=== PATIENT | male | born 1960 | race Caucasian/White ===

== ENCOUNTER → 2016-12-27 | Outpatient (CLI) | payer OTHER ==
[2015-03-10 12:35] VITALS: BP 181/96
--- NOTE | 2016-12-27 08:48 | RAD ---
HISTORY: Disability, low back pain Study: Three views lumbar spine Comparison: 06/24/2013 Findings: There is grade 1 anterolisthesis of L5 on S1 due to multilevel facet degenerative changes. Alignment is otherwise normal. Vertebral body heights are preserved. There is multilevel spondylosis and de generative disc space narrowing unchanged from prior study.No evidence for acute fracture or subluxa tion. There are chronic degenerative changes of the bony pelvis. There are vascular calcifications o f the aorta and iliac arteries. IMPRESSION: 1. Chronic multilevel lumbar degenerative changes as described. There is grade 1 anterolisthesis of L5 on S1. No acute osseous abnormality. Reported By:
== END ==
LOC: RAD 07:55
PROVIDERS: ATTEND Internal Medicine
DX: Z02.71 Encounter for disability determination (principal)
CPT/HCPCS: 72100

== ENCOUNTER 2017-04-19 09:19 | Emergency (ER) | payer MEDICAID, OTHER ==
[2017-04-19 09:23] VITALS: BMI 36.1
[2017-04-19] MEDS ORDERED: CATAPRES TAB 0.2 MG ONE (09:34)
[2017-04-19] MEDS ORDERED: CATAPRES TAB 0.2 MG PO ONE (09:36)
[2017-04-19] MEDS ORDERED: TORADOL 60 MG VIAL IM ONE (10:00)
[2017-04-19] MEDS ORDERED: NORFLEX INJ IM ONE (10:00)
--- NOTE | 2017-04-19 10:01 | DR.EXTPAIN ---
HPI - Time seen Time seen: 09:55 - PCP Primary Care Physician: NFD - Complaint/Symptoms Chief Complaint Doctor Comments: R Knee pain. No h/o trauma. Chief Complaint:: PT. C/O SEVERE PAIN TO RIGHT KNEE WHICH IS CHRONIC IN NATURE AND HAS BEEN GOING ON FOR ABOUT 6 MONTHS. PT. STATES HE SEEN DR. DAMON LAST MONTH AND HAD INJECTIONS INTO KNEE BUT IT DID NOT HELP. PT. ALSO SAYS THAT HIS BLOOD PRESSURE IS SHERIF HIGH AND HE CAN'T GET IT DOWN. - Nurses notes reviewed Nurses Notes Review: Yes - Source History Provided: Patient - Mode of arrival Mode of Arrival: Ambulatory - Timing Onset of Chief Complaint: 11/08/16 - Context History of: Knee Operation - Associated signs and symptoms Associated Signs and Symptoms: Pain, Swelling PMH - PMH Past Medical History: Yes Past Medical History: Hypertension Past Surgical History: Yes Surgical History: Ortho Surgery, Other Past Surgical History Comment: NECK - Family History History of Family Medical Conditions: No Family Medical History: Diabetes Mellitus, Coronary Artery Disease, Hypertension - Social History Does patient currently use any type of tobacco product: Yes Have you used tobacco products in the last 12 months: Yes Type of Tobacco Use: Cigarettes Does any household member use tobacco: No Alcohol Use: None Do you use any recreational Drugs:: No Lives With: Dad, Mom Lives Where: Home - infectious screening In the last 2 months have you had wt loss of >10#?: NO Have you had fever, night sweats or hemotysis?: No Have you traveled outside the country in the last 6 months?: No Isolation: Standard ROS - Review of Systems Constitutional: No Symptoms Reported Respiratoy: No Symptoms Reported Cardiovascular: No Symptoms Reported Gastrointestinal/Abdominal: No Symptoms Reported Genitourinary: No Symptoms Reported Neurological: No Symptoms Reported Musculoskeletal: Joint Pain, Joint Swelling, Right, Knee Integumentary: No Symptoms Reported Hematologic/Lymphatic: No Symptoms Reported Endocrine: No Symptoms Reported Psychiatric: No Symptoms Reported All Other Systems: Reviewed and Negative PE - Vital Signs Vitals: Temperature 98 F Pulse Rate 80 Respiratory Rate 22 Blood Pressure [Right Arm] 180/100 Blood Pressure 200/110 O2 Sat by Pulse Oximetry 96 - General Limitations: No Limitations General Appearance: In No Apparent Distress - Chest Chest Inspection: Normal Inspection - Respiratory Respiratory Exam: Normal Lung Sounds Bilat - Cardiovascular Cardiovascular Exam: Regular Rate, Normal Rhythm, Normal Heart Sounds - Extremities Extremities Exam: Other (R knee swelling and decrease ROM due to pain and swellling) - Upper Extremities Shoulder Exam: Normal Inspection Arm Exam: Normal Inspection Neuromotor Exam: Normal Exam Neurosensory Exam: Normal Exam - Lower Extremities Knee Exam: Tenderness, Swelling, Crepitus, Effusion. negative: Deformity, Erythema, Pain with Valgus, Laxity with Valgus Ankle Exam: Normal Inspection Foot/Toe Exam: Normal Inspection - Diagnosis Discharge Problem: degenerative disc disease - Discharge Plan Condition: Stable - Follow ups/Referrals Follow ups/Referrals: NFD,None [Primary Care Provider] - 3 days - Instructions
[2017-04-19] MEDS ORDERED: NORFLEX INJ ONE (10:02)
[2017-04-19] MEDS ORDERED: TORADOL 60 MG VIAL ONE (10:02)
[2017-04-19] MEDS ORDERED: NAPROSYN PO PRN (10:12)
--- NOTE | 2017-04-19 10:29 | RAD ---
HISTORY: Nontraumatic right knee pain Study: Right knee three view Comparison: None Findings: There is no evidence for fracture, lytic, or blastic lesion. No joint erosion or joint effusion is p resent. Moderate degenerative joint space narrowing is present medially. IMPRESSION: Mild degenerative medial compartment narrowing Reported By:
[2017-04-19 10:34] VITALS: BP 139/85
== END 2017-04-19 10:48 | disposition home or self-care (01) ==
LOC: ER 09:28
DX: M51.36 Other intervertebral disc degeneration, lumbar region (principal)
CPT/HCPCS: 73560; 96372; 99283; J1885; J2360

== ENCOUNTER 2017-08-22 22:15 | Emergency (ER) | payer MEDICAID ==
[2017-08-22 22:19] VITALS: BMI 38.4
[2017-08-22 22:50] LABS: BASOPHILS % (AUTO) 0.3 % (0.2-1.0); EOSINOPHILS # (AUTO) 0.3 x10^3/uL (0.0-0.2); EOSINOPHILS % (AUTO) 4.2 % (0.9-2.9); HEMATOCRIT 42.3 % (42.0-54.0); HEMOGLOBIN 14.6 g/dL (13.5-18.0); LYMPHOCYTES % (AUTO) 30.2 % (21.0-51.0); MEAN CORPUSCULAR HEMOGLOBIN 31.4 pg (27.0-34.0); MEAN CORPUSCULAR HGB CONC 34.5 g/dL (33.0-35.0); MEAN CORPUSCULAR VOLUME 91.1 fL (80.0-100.0); MEAN PLATELET VOLUME 8.3 fL (7.4-11.0); MONOCYTES # (AUTO) 0.7 x10^3/uL (0.3-0.8); MONOCYTES % (AUTO) 10.2 % (0.0-13.0); NEUTROPHILS # (AUTO) 3.6 x10^3/uL (2.2-4.8); NEUTROPHILS % (AUTO) 55.1 % (42.0-75.0); PLATELET COUNT 209 X10^3/uL (150.0-450.0); RED BLOOD COUNT 4.64 X10^6/uL (4.7-6.0); RED CELL DISTRIBUTION WIDTH 13.6 % (11.6-16.5); WHITE BLOOD COUNT 6.5 X10^3/uL (3.6-10.0)
[2017-08-22 23:07] LABS: BLOOD UREA NITROGEN 16 mg/dL (7-18); CALCIUM 9.5 mg/dL (8.5-10.1); CARBON DIOXIDE 24.8 mmol/L (21-32); CHLORIDE 107 mmol/L (98-107); COR NA(FOR HYPERGLY) 143 mmol/L (136-145); CREATININE 1.37 mg/dL (0.70-1.30); SODIUM 142 mmol/L (136-145); TROPONIN I < 0.02 ng/mL (0-1.5); eGFR BLACK RACES > 60 (>60); eGFR NON BLACK RACES 57 (>60)
[2017-08-22 23:09] LABS: ALANINE AMINOTRANSFERASE 35 Units/L (12-78); ALBUMIN 3.7 g/dL (3.4-5.0); ALKALINE PHOSPHATASE 67 Units/L (46-116); ASPARTATE AMINO TRANSFERASE 28 Units/L (15-37); CREATINE KINASE 96 Units/L (39-308); CREATINE KINASE MB < 1.0 ng/mL (0-4.0); TOTAL PROTEIN 7.1 g/dL (6.4-8.2)
[2017-08-22] MEDS ORDERED: VISTARIL PO ONE ×2 (23:09→23:15)
[2017-08-22] MEDS ORDERED: PEPCID 20 MG IV PREMIX* 20 MG/50 ML BAG IV ONE (23:10)
[2017-08-22] MEDS ORDERED: TORADOL 30 MG VIAL IVP ONE (23:10)
--- NOTE | 2017-08-22 23:13 | DR.GENAD ---
HPI - HPI Comment HPI Comment: KNEE PAIN CHRONIC BUT WORSE TODAY. NO TRAUMA. CHEST PAIN ASSOCIATED WITH SOB ABD CHEST WALL DISCOMFORT. NO TRAUMA. - Complaint/Symptoms Chief Complaint Doctors Comments: CHEST PAIN, KNEE PAIN TIMES 3 TO 4 DAYS. Chief Complaint:: PT C/O RT KNEE PAIN AND CHEST PAIN. ONSET 4 DAYS AGO. DENIES INJURY. STATES THAT HIS KNEE HAS BEEN HURTING FOR OVER A YEAR AND NO ONE CAN FIND ANYTHIGN WRONG WITH IT. CHEST PAIN HURTS WORSE TO TAKE A DEEP BREATH AND TENDER TO PALPATION - Nurses notes reviewed Nurses Notes Review: Yes - Source History Provided: Patient - Mode of Arrival Mode of Arrival: Ambulatory - Timing Onset of Chief Complaint: 08/19/17 Came on: Suddenly - Duration Duration: Constant Duration: Days - Severity Severity: Moderate PMH - PMH Past Medical History: Yes Past Medical History: Anxiety, COPD, Hypertension Past Surgical History: Yes Surgical History: Ortho Surgery, Other - Family History History of Family Medical Conditions: Yes Family Medical History: Diabetes Mellitus, Coronary Artery Disease, Hypertension - Social History Do you use any recreational Drugs:: No - infectious screening Have you traveled outside the country in the last 6 months?: No ROS - Review of Systems Constitutional: Weakness. negative: Chills, Fever Eyes: negative: Eye Pain, Discharge ENTM: Nose Congestion. negative: Ear Discharge, Nose Discharge, Mouth Pain Respiratoy: Non-Productive Cough, Short of Breath, Wheezing Cardiovascular: Chest Pain, Edema Gastrointestinal/Abdominal: No Symptoms Reported Genitourinary: No Symptoms Reported Musculoskeletal: Joint Pain, Joint Swelling, Muscle Pain, Knee Integumentary: Change in Color Hematologic/Lymphatic: Easy Bleeding, Easy Bruising Endocrine: No Symptoms Reported All Other Systems: Reviewed and Negative PE - Vital Signs Vitals: Temperature 98.7 F Pulse Rate [Left Radial] 72 Pulse Rate 97 Respiratory Rate 18 Blood Pressure [Right Arm] 144/86 Blood Pressure 144/87 O2 Sat by Pulse Oximetry 98 - General Limitations: No Limitations General Appearance: Alert - Head Head Exam: Normal Inspection - Eyes Eye exam: Normal Appearance - ENT ENT Exam: Normal External Ear Exam External Ear Exam: Normal External Inspection TM/Canal Exam: Bilateral Normal Nose Exam: Normal Nose Exam Mouth Exam: Normal Inspection Throat Exam: Normal Inspection - Neck Neck Exam: Trachea Midline - Chest Chest Inspection: Symmetric Chest Wall Rise - Respiratory Respiratory Exam: Respiratory Distress Respiratory Exam: Bilateral Wheezing, Bilateral Rhonchi, Lower Wheezing, Lower Rhonchi - Cardiovascular Cardiovascular Exam: Regular Rate, Normal Rhythm, Normal Heart Sounds - Abdominal Exam Abdominal Exam: Normal Bowel Sounds, Soft. negative: Tenderness - Extremities Extremities Exam: Edema (TRACE) - Back Back Exam: Normal Inspection - Neurologic Neurological Exam: Alert, Oriented X3 - Psychiatric Psychiatric Exam: Anxious - Skin Skin Exam: Erythema MDM - Differential Diagnosis Differential Diagnosis: CHEST PAIN, CT, CHEST WALL PAIN, KNEE PAIN Course - Treatment Treatment: SEE ORDERS. PATIENT SIGN OUT AMA BEFOR EVALUATION COMPLETED. - Education/Counseling Education/Counseling: Patient ROR - Labs Reviewed Laboratory Results Reviewed?: Yes Result Diagrams: 08/22/17 22:30 08/22/17 22:30 Laboratory: WBC 6.5 X10^3/uL (3.6-10.0) 08/22/17: RBC 4.64 X10^6/uL (4.7-6.0) L 08/22/17 22: Hgb 14.6 g/dL (13.5-18.0) 08/22/17 22:30 Hct 42.3 % (42.0-54.0) 08/22/17 22:30 MCV 91.1 fL (80.0-100.0) 08/22/17 22: MCH 31.4 pg (27.0-34.0) 08/22/17 22:30 MCHC 34.5 g/dL (33.0-35.0) 08/22/17 22:30 RDW 13.6 % (11.6-16.5) 08/22/17: Plt Count 209 X10^3/uL (150.0-450.0) 08/22/17 22:30 MPV 8.3 fL (7.4-11.0) 08/22/17 22: Neut % 55.1 % (42.0-75.0) 08/22/17: Lymph % 30.2 % (21.0-51.0) 08/22/17 22:30 [place] % 10.2 % (0.0-13.0) 08/22/17 22: Eos % 4.2 % (0.9-2.9) H 08/22/17 22: Baso % 0.3 % (0.2-1.0) 08/22/17 22:30 Neut # 3.6 x10^3/uL (2.2-4.8) 08/22/17 22:30 Lymph # 2.0 X10^3/uL (1.3-2.9) 08/22/17 22:30 [place] # 0.7 x10^3/uL (0.3-0.8) 08/22/17 22:30 Eos # 0.3 x10^3/uL (0.0-0.2) H 08/22/17 22:30 Baso # 0.0 X10^3/uL (0.0-0.1) 08/22/17:30 Absolute Nucleated RBC 0.1 /100WBC 08/22/17 22:30 Sodium 142 mmol/L (136-145) 08/22/17 22:30 Corrected Sodium 143 mmol/L (136-145) 08/22/17 22:30 Potassium 3.6 mmol/L (3.5-5.1) 08/22/17 22:30 Chloride 107 mmol/L (98-107) 08/22/17 22:30 Carbon Dioxide 24.8 mmol/L (21-32) 08/22/17 22:30 BUN 16 mg/dL (7-18) 08/22/17 22:30 Creatinine 1.37 mg/dL (0.70-1.30) H 08/22/17 22:30 Est GFR (MDRD) Af Amer > 60 (>60) 08/22/17 22:30 Est GFR (MDRD) Non-Af 57 (>60) L 08/22/17 22:30 Glucose 131 mg/dL (65-99) H 08/22/17 22:30 Calcium 9.5 mg/dL (8.5-10.1) 08/22/17 22:30 Corrected Calcium TNP 08/22/17:30 Total Bilirubin 0.30 mg/dL (0.2-1.0) 08/22/17 22:30 AST 28 Units/L (15-37) 08/22/17 22:30 ALT 35 Units/L (12-78) 08/22/17 22:30 Alkaline Phosphatase 67 Units/L (46-116) 08/22/17 22:30 Creatine Kinase 96 Units/L (39-308) 08/22/17 22:30 CK-MB (CK-2) < 1.0 ng/mL (0-4.0) 08/22/17 22:30 CK/CKMB % Calc 1.0 % (<4) 08/22/17 22:30 Troponin I < 0.02 ng/mL (0-1.5) 08/22/17 22:30 Total Protein 7.1 g/dL (6.4-8.2) 08/22/17 22:30 Albumin 3.7 g/dL (3.4-5.0) 08/22/17 22:30 Globulin 3.4 g/dL (2.5-4.5) 08/22/17 22:30 Albumin/Globulin Ratio 1.1 Ratio (1.1-2.1) 08/22/17 22:30 - EKG Rhythm: NSR (EKG NOTED) - Diagnosis Discharge Problem: Chest pain, Right knee pain - Discharge Plan Disposition: AGAINST MEDICAL ADVICE Condition: Stable - Follow ups/Referrals Follow ups/Referrals: NFD,None [Primary Care Provider] - 3 days - Instructions
[2017-08-22] MEDS ORDERED: PEPCID 20 MG IV PREMIX* 0 MG/0 ML BAG IV ONE (23:15)
[2017-08-22] MEDS ORDERED: TORADOL 30 MG VIAL ONE (23:15)
--- NOTE | 2017-08-22 23:15 | RAD ---
Chest, one view Indication: Chest pain Comparison: None Findings: The heart size is normal. The lungs are essentially clear without focal infiltrates or larg e effusion. Impression: No acute chest process. Reported By:
[2017-08-22 23:24] VITALS: BP 144/86
== END 2017-08-22 23:25 | disposition left against medical advice (07) ==
LOC: ER 22:32
DX: R07.89 Other chest pain (principal); M25.561 Pain in right knee
CPT/HCPCS: 36415; 71010; 80053; 82550; 82553; 84484; 85025; 93005; 93010; 96365; 99283; A4222; Q0177; S0028; J1885

== ENCOUNTER → 2017-09-06 | Outpatient (CLI) | payer MEDICAID ==
[2017-08-22 23:24] VITALS: BP 144/86
--- NOTE | 2017-09-06 06:26 | RAD ---
Examination: Right knee, three views History: Knee pain Comparison reference 04/19/2017 Findings: Slight narrowing of medial compartment, without evidence for fracture, bone destruction or synovial effusion. Impression: Stable appearance of mild medial compartment osteoarthritis. Reported By:
== END ==
LOC: RAD 05:18
PROVIDERS: ATTEND Specialist
DX: M46.89 Other specified inflammatory spondylopathies, multiple sites in spine (principal)
CPT/HCPCS: 73560

== ENCOUNTER → 2017-09-28 | Outpatient (CLI) | payer MEDICAID ==
--- NOTE | 2017-10-02 16:27 | MRI ---
MRI right knee without contrast Indication: Right knee pain Technique: Multisequence, multiplanar MR images of the right knee were obtained without IV contrast. Comparison: Radiograph 09/06/2017 Findings: There are large areas of full-thickness cartilage loss throughout the weight-bearing medial compartme nt with extensive subchondral marrow edema and cyst formation within the medial femoral condyle and t ibial plateau. No definite fracture is identified. There is also mild diffuse cartilage thinning of t he lateral femorotibial and patellofemoral compartments, which otherwise appear relatively well maint ained. There is a small suprapatellar joint effusion. No popliteal fossa cyst is identified. There are horizontal cleavage tears of the anterior and posterior horns of the medial meniscus. There is a complex degenerative tear and extrusion of the medial meniscal body. The lateral meniscus demon strates increased intrasubstance signal which does not extend to an articular surface, compatible wit h myxoid degeneration. The ACL and PCL are intact. There is mild likely reactive thickening and inter mediate signal of the intact superficial MCL. The FCL and remaining posterior lateral ligamentous com plex is intact. The extensor mechanism is normal as well. Impression: 1. 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 2. Diffuse associated degenerative tears of the medial meniscus, as detailed above. 3. 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 4. Small likely reactive joint effusion. Reported By:
== END ==
LOC: RAD 10:19
PROVIDERS: ATTEND Specialist
DX: M17.11 Unilateral primary osteoarthritis, right knee (principal)
CPT/HCPCS: 73721

== ENCOUNTER → 2017-10-18 | Outpatient (CLI) | payer MEDICAID ==
[2017-09-24 12:47] VITALS: BP 130/79
[2017-10-18 06:11] LABS: BASOPHILS % (AUTO) 0.3 % (0.2-1.0); EOSINOPHILS # (AUTO) 0.3 x10^3/uL (0.0-0.2); EOSINOPHILS % (AUTO) 4.7 % (0.9-2.9); HEMATOCRIT 44.3 % (42.0-54.0); HEMOGLOBIN 15.2 g/dL (13.5-18.0); LYMPHOCYTES # (AUTO) 2.1 X10^3/uL (1.3-2.9); LYMPHOCYTES % (AUTO) 29.4 % (21.0-51.0); MEAN CORPUSCULAR HEMOGLOBIN 31.4 pg (27.0-34.0); MEAN CORPUSCULAR HGB CONC 34.3 g/dL (33.0-35.0); MEAN CORPUSCULAR VOLUME 91.8 fL (80.0-100.0); MEAN PLATELET VOLUME 7.5 fL (7.4-11.0); MONOCYTES # (AUTO) 0.6 x10^3/uL (0.3-0.8); MONOCYTES % (AUTO) 8.5 % (0.0-13.0); NEUTROPHILS # (AUTO) 4.1 x10^3/uL (2.2-4.8); NEUTROPHILS % (AUTO) 57.1 % (42.0-75.0); PLATELET COUNT 292 X10^3/uL (150.0-450.0); RED BLOOD COUNT 4.82 X10^6/uL (4.7-6.0); RED CELL DISTRIBUTION WIDTH 13.9 % (11.6-16.5); WHITE BLOOD COUNT 7.2 X10^3/uL (3.6-10.0)
[2017-10-18 06:39] LABS: ALANINE AMINOTRANSFERASE 48 Units/L (12-78); ALBUMIN 3.4 g/dL (3.4-5.0); ALKALINE PHOSPHATASE 82 Units/L (46-116); ASPARTATE AMINO TRANSFERASE 29 Units/L (15-37); BLOOD UREA NITROGEN 21 mg/dL (7-18); CALCIUM 9.5 mg/dL (8.5-10.1); CARBON DIOXIDE 23.5 mmol/L (21-32); CHLORIDE 105 mmol/L (98-107); CREATININE 1.51 mg/dL (0.70-1.30); SODIUM 139 mmol/L (136-145); T4 (THYROXINE) 9.1 ug/dL (4.7-13.3); TOTAL PROTEIN 7.7 g/dL (6.4-8.2); TSH (3RD GENERATION) 2.762 uIU/mL (0.358-3.74); eGFR BLACK RACES > 60 (>60); eGFR NON BLACK RACES 51 (>60)
--- NOTE | 2017-10-18 06:59 | RAD ---
Examination: Chest, PA and lateral views History: No chest complaint Comparison 08/22/2017 Findings: Normal cardiac size, clear lungs and pleural spaces. There is no mediastinal or hilar lesio n. Impression: Chest examination within normal limits. Reported By:
== END ==
LOC: LAB 05:46
PROVIDERS: ATTEND Internal Medicine
DX: I10 Essential (primary) hypertension (principal); J44.9 Chronic obstructive pulmonary disease, unspecified
CPT/HCPCS: 36415; 71046; 80053; 84436; 84443; 85025

== ENCOUNTER → 2018-01-03 | Outpatient (CLI) | payer MEDICAID ==
[2017-09-24 12:47] VITALS: BP 130/79
--- NOTE | 2018-01-03 10:29 | RAD ---
Examination: Chest, PA and lateral views History: Chest pain, SOB Comparison 10/18/2017 Findings: Continued normal heart size with clear lungs and pleural spaces. Evaluation of lung bases l imited by low lung volumes. No hilar enlargement or mediastinal widening. Impression: No acute chest findings. Reported By:
[2018-01-03 10:32] LABS: BASOPHILS # (AUTO) 0.1 X10^3/uL (0.0-0.1); BASOPHILS % (AUTO) 0.8 % (0.2-1.0); EOSINOPHILS # (AUTO) 0.3 x10^3/uL (0.0-0.2); HEMATOCRIT 43.3 % (42.0-54.0); HEMOGLOBIN 14.9 g/dL (13.5-18.0); LYMPHOCYTES # (AUTO) 1.6 X10^3/uL (1.3-2.9); LYMPHOCYTES % (AUTO) 20.7 % (21.0-51.0); MEAN CORPUSCULAR HEMOGLOBIN 31.5 pg (27.0-34.0); MEAN CORPUSCULAR HGB CONC 34.5 g/dL (33.0-35.0); MEAN CORPUSCULAR VOLUME 91.3 fL (80.0-100.0); MEAN PLATELET VOLUME 8.6 fL (7.4-11.0); MONOCYTES # (AUTO) 0.7 x10^3/uL (0.3-0.8); MONOCYTES % (AUTO) 9.5 % (0.0-13.0); PLATELET COUNT 220 X10^3/uL (150.0-450.0); RED BLOOD COUNT 4.74 X10^6/uL (4.7-6.0); RED CELL DISTRIBUTION WIDTH 13.6 % (11.6-16.5); WHITE BLOOD COUNT 7.7 X10^3/uL (3.6-10.0)
[2018-01-03 10:33] LABS: ALANINE AMINOTRANSFERASE 39 Units/L (12-78); ALBUMIN 3.8 g/dL (3.4-5.0); ALKALINE PHOSPHATASE 96 Units/L (46-116); ASPARTATE AMINO TRANSFERASE 24 Units/L (15-37); BLOOD UREA NITROGEN 14 mg/dL (7-18); CALCIUM 8.8 mg/dL (8.5-10.1); CARBON DIOXIDE 21.7 mmol/L (21-32); CHLORIDE 106 mmol/L (98-107); CHOL/HDL RATIO 4.1 (0.0-5.0); CHOLESTEROL 161 mg/dL (0-200); CREATININE 1.29 mg/dL (0.70-1.30); HDL CHOLESTEROL 39 mg/dL (40-60); SODIUM 140 mmol/L (136-145); TOTAL PROTEIN 7.9 g/dL (6.4-8.2); TRIGLYCERIDES 62 mg/dL (0-150); eGFR BLACK RACES > 60 (>60); eGFR NON BLACK RACES > 60 (>60)
== END ==
LOC: LAB 09:54
PROVIDERS: ATTEND Internal Medicine
DX: R07.89 Other chest pain (principal); I25.10 Atherosclerotic heart disease of native coronary artery without angina pectoris; J44.9 Chronic obstructive pulmonary disease, unspecified
CPT/HCPCS: 36415; 71046; 80053; 80061; 85025; 93005; 93010

== ENCOUNTER → 2018-01-15 | Outpatient (CLI) | payer MEDICAID ==
[2017-09-24 12:47] VITALS: BP 130/79
[2018-01-15 06:01] LABS: BASOPHILS # (AUTO) 0.1 X10^3/uL (0.0-0.1); BASOPHILS % (AUTO) 1.2 % (0.2-1.0); EOSINOPHILS # (AUTO) 0.3 x10^3/uL (0.0-0.2); EOSINOPHILS % (AUTO) 4.9 % (0.9-2.9); HEMATOCRIT 44.4 % (42.0-54.0); HEMOGLOBIN 15.4 g/dL (13.5-18.0); LYMPHOCYTES # (AUTO) 1.8 X10^3/uL (1.3-2.9); LYMPHOCYTES % (AUTO) 26.8 % (21.0-51.0); MEAN CORPUSCULAR HEMOGLOBIN 31.7 pg (27.0-34.0); MEAN CORPUSCULAR HGB CONC 34.8 g/dL (33.0-35.0); MEAN CORPUSCULAR VOLUME 91.2 fL (80.0-100.0); MONOCYTES # (AUTO) 0.6 x10^3/uL (0.3-0.8); MONOCYTES % (AUTO) 8.5 % (0.0-13.0); NEUTROPHILS # (AUTO) 3.9 x10^3/uL (2.2-4.8); NEUTROPHILS % (AUTO) 58.6 % (42.0-75.0); PLATELET COUNT 242 X10^3/uL (150.0-450.0); RED BLOOD COUNT 4.87 X10^6/uL (4.7-6.0); RED CELL DISTRIBUTION WIDTH 13.6 % (11.6-16.5); WHITE BLOOD COUNT 6.7 X10^3/uL (3.6-10.0)
[2018-01-15 06:44] LABS: ALANINE AMINOTRANSFERASE 32 Units/L (12-78); ALBUMIN 3.6 g/dL (3.4-5.0); ALKALINE PHOSPHATASE 93 Units/L (46-116); ASPARTATE AMINO TRANSFERASE 27 Units/L (15-37); BILIRUBIN,DIRECT 0.06 mg/dL (0-0.2); BLOOD UREA NITROGEN 17 mg/dL (7-18); CARBON DIOXIDE 25.2 mmol/L (21-32); CHLORIDE 107 mmol/L (98-107); CHOLESTEROL 167 mg/dL (0-200); COR NA(FOR HYPERGLY) 142 mmol/L (136-145); CREATININE 1.36 mg/dL (0.70-1.30); HDL CHOLESTEROL 42 mg/dL (40-60); SODIUM 142 mmol/L (136-145); TOTAL PROTEIN 7.7 g/dL (6.4-8.2); TRIGLYCERIDES 70 mg/dL (0-150); eGFR BLACK RACES > 60 (>60); eGFR NON BLACK RACES 57 (>60)
== END ==
LOC: LAB 05:05 → EDSTATUS 05:41
PROVIDERS: ATTEND Internal Medicine Cardiovascular Disease
DX: R07.9 Chest pain, unspecified (principal); R06.00 Dyspnea, unspecified; F17.200 Nicotine dependence, unspecified, uncomplicated; R00.2 Palpitations
CPT/HCPCS: 36415; 80048; 80061; 80076; 85025

== ENCOUNTER 2020-06-25 05:29 | Observation (INO) ==
--- NOTE | 2020-06-25 06:02 | DR.EXTPAIN ---
HPI Time seen Time Seen by Provider: 06/25/20 06:02 PCP Primary Care Physician: QUETA Complaint/Symptoms Chief Complaint:: PT AMBULATORY IN ED WITH C/O RIGHT KNEE PAIN AND LEFT SHOULDER PAIN. PT STATES HE HAS BEEN BLACKING OUT AND FALLING. WHILE IN TRIAGE PT WENT INTO A BLANK STARE AND HEART RATE WENT TO 0 FOR A FEW SECONDS. WHEN PT CAME AROUND HIS HEART RATE WENT TO 170'S AND STAYED THERE FOR APPROX 1-2 MINS THEN TO 60'S WHERE IT MAINTAINED. COVID-19 Coronavirus risk:travel/contact w/high risk person: No Has patient experienced Coronavirus symptoms: No Source History Provided: Patient Mode of arrival Mode of Arrival: Ambulatory Timing Onset of Chief Complaint: 06/25/20 PMH PMH Past Medical History: Yes Past Medical History: Anxiety, COPD, Coronary Artery Disease, Hypertension and [place] Past Surgical History: Yes Surgical History: CABG/Valve Surgery and Ortho Surgery Past Surgical History Comment: LEFT KNEE RIGHT KNEE NECK PEG Family History History of Family Medical Conditions: Yes Family Medical History: Diabetes Mellitus, Coronary Artery Disease and Hypertension Social History Does patient currently use any type of tobacco product: Yes Have you used tobacco products in the last 12 months: Yes Type of Tobacco Use: Cigarettes Does any household member use tobacco: No Alcohol Use: None Do you use any recreational Drugs:: No Lives With: Alone Travel Risk Coronavirus risk:travel/contact w/high risk person: No Has patient experienced Coronavirus symptoms: No Infectious screening In the last 2 months have you had wt loss of >10#?: NO Have you had fever, night sweats or hemotysis?: No Have you traveled outside the country in the last 6 months?: No Isolation: Standard ROS Review of Systems Constitutional: No Symptoms Reported and See HPI Eyes: No Symptoms Reported and See HPI ENTM: No Symptoms Reported and See HPI Respiratoy: No Symptoms Reported and See HPI Cardiovascular: No Symptoms Reported and See HPI Gastrointestinal/Abdominal: No Symptoms Reported and See HPI Genitourinary: No Symptoms Reported and See HPI Neurological: No Symptoms Reported and See HPI Musculoskeletal: No Symptoms Reported and See HPI Integumentary: No Symptoms Reported and See HPI Hematologic/Lymphatic: No Symptoms Reported and See HPI Endocrine: No Symptoms Reported and See HPI Psychiatric: No Symptoms Reported and See HPI All Other Systems: Reviewed and Negative PE Vital Signs Vitals: Temperature 97.8 F Pulse Rate 56 Respiratory Rate 30 Blood Pressure [Right Arm] 144/86 Blood Pressure 113/77 O2 Sat by Pulse Oximetry 98 General Limitations: No Limitations General Appearance: Alert and In No Apparent Distress Head Head Exam: Normal Inspection Eyes Eye exam: Normal Appearance ENT ENT Exam: Normal Exam Neck Neck Exam: Normal Inspection Chest Chest Inspection: Normal Inspection Respiratory Respiratory Exam: Normal Lung Sounds Bilat Cardiovascular Cardiovascular Exam: Regular Rate and Normal Rhythm Abdominal Exam Abdominal Exam: Normal Inspection, Normal Bowel Sounds and Soft Extremities Extremities Exam: Normal Inspection Back Back Exam: Normal Inspection Neurological Neurological Exam: Alert, Oriented X3 and CN II-XII Intact Psychiatric Psychiatric Exam: Normal Affect and Normal Mood Skin Skin Exam: Warm, Dry, Intact and Normal Color MDM Differential Diagnosis Differential Diagnosis: Other (SYNCOPAL EPISODE.) COURSE Treatment Treatment: SEE ORDERS. Education/Counseling Education/Counseling: Patient Educated On: Diagnosis ROR Labs Reviewed Laboratory Results Reviewed?: Yes Result Diagrams: 06/25/20 05:48 06/25/20 05:48 Laboratory: WBC 8.5 X10^3/uL (3.6-10.0) 06/25/20 05:48 RBC 4.54 X10^6/uL (4.7-6.0) L 06/25/20 05:48 Hgb 14.5 g/dL (13.5-18.0) 06/25/20 05:48 Hct 43.8 % (42.0-54.0) 06/25/20 05:48 MCV 96.5 fL (80.0-100.0) 06/25/20 05:48 MCH 31.9 pg (27.0-34.0) 06/25/20 05:48 MCHC 33.1 g/dL (33.0-35.0) 06/25/20 05:48 RDW 15.4 % (11.6-16.5) 06/25/20 05:48 Plt Count 275 X10^3/uL (150.0-450.0) 06/25/20 05:48 MPV 8.8 fL (7.4-11.0) 06/25/20 05:48 Neut % (Auto) 71.5 % (42.0-75.0) 06/25/20 05:48 Lymph % (Auto) 16.5 % (21.0-51.0) L 06/25/20 05:48 [place] % (Auto) 7.7 % (0.0-13.0) 06/25/20 05:48 Eos % (Auto) 3.2 % (0.9-2.9) H 06/25/20 05:48 Baso % (Auto) 1.1 % (0.2-1.0) H 06/25/20 05:48 Neut # (Auto) 6.1 x10^3/uL (2.2-4.8) H 06/25/20 05:48 Lymph # (Auto) 1.4 X10^3/uL (1.3-2.9) 06/25/20 05:48 [place] # (Auto) 0.7 x10^3/uL (0.3-0.8) 06/25/20 05:48 Eos # (Auto) 0.3 x10^3/uL (0.0-0.2) H 06/25/20 05:48 Baso # (Auto) 0.1 X10^3/uL (0.0-0.1) 06/25/20 05:48 Absolute Nucleated RBC 0.1 /100WBC 06/25/20 05:48 Sodium 142 mmol/L (136-145) 06/25/20 05:48 Corrected Sodium TNP 06/25/20 05:48 Potassium 4.2 mmol/L (3.5-5.1) 06/25/20 05:48 Chloride 107 mmol/L (98-107) 06/25/20 05:48 Carbon Dioxide 25.4 mmol/L (21-32) 06/25/20 05:48 BUN 17 mg/dL (7-18) 06/25/20 05:48 Creatinine 1.61 mg/dL (0.70-1.30) H 06/25/20 05:48 Est GFR (MDRD) Af Amer 57 (>60) L 06/25/20 05:48 Est GFR (MDRD) Non-Af 47 (>60) L 06/25/20 05:48 Glucose 90 mg/dL (65-99) 06/25/20 05:48 Calcium 9.4 mg/dL (8.5-10.1) 06/25/20 05:48 Corrected Calcium 10.0 mg/dL (8.5-10.1) 06/25/20 05:48 Total Bilirubin 0.40 mg/dL (0.2-1.0) 06/25/20 05:48 AST 24 Units/L (15-37) 06/25/20 05:48 ALT 25 Units/L (12-78) 06/25/20 05:48 Alkaline Phosphatase 107 Units/L (46-116) 06/25/20 05:48 Creatine Kinase 40 Units/L (39-308) 06/25/20 05:48 CK-MB (CK-2) < 1.0 ng/mL (0-4.0) 06/25/20 05:48 CK/CKMB % Calc 2.5 % (<4) 06/25/20 05:48 Troponin I < 0.02 ng/mL (0-1.5) 06/25/20 05:48 Total Protein 7.1 g/dL (6.4-8.2) 06/25/20 05:48 Albumin 3.3 g/dL (3.4-5.0) L 06/25/20 05:48 Globulin 3.8 g/dL (2.5-4.5) 06/25/20 05:48 Albumin/Globulin Ratio 0.9 Ratio (1.1-2.1) L 06/25/20 05:48 Specimen Type Clean catch urine 06/25/20 08:00 Urine Color Yellow (YELLOW) 06/25/20 08:00 Urine Appearance Clear (CLEAR) 06/25/20 08:00 Urine pH 6.0 (5.0 - 8.0) 06/25/20 08:00 Ur Specific [place] 1.010 (1.000-1.030) 06/25/20 08:00 Urine Protein 1+ (NEGATIVE) 06/25/20 08:00 Urine Glucose (UA) Negative (NEGATIVE) 06/25/20 08:00 Urine Ketones Negative (NEGATIVE) 06/25/20 08:00 Urine Occult Blood Negative (NEGATIVE) 06/25/20 08:00 Urine Nitrite Negative (NEGATIVE) 06/25/20 08:00 Urine Bilirubin Negative (NEGATIVE) 06/25/20 08:00 Urine Urobilinogen 1+ (NORMAL) 06/25/20 08:00 Ur Leukocyte Esterase Negative (NEGATIVE) 06/25/20 08:00 Urine RBC None seen /HPF (0-3) 06/25/20 08:00 Urine WBC None seen /HPF (0-5) 06/25/20 08:00 Ur Squamous Epith Cells Negative /HPF (NEGATIVE) 06/25/20 08:00 Urine Bacteria Negative /HPF (NEGATIVE) 06/25/20 08:00 Urine Mucus Few /HPF (NEGATIVE) 06/25/20 08:00 Ur Culture Indicated? No/not indicated 06/25/20 08:00 Opioid Opioid Risk Tool Age (Dom box if 16-45): No History of Preadolescent Sexual Abuse: No Total: 0 Total Score Risk Category: Low Risk Copyright: Mj IBANEZ predicting aberrant behaviors Diagnosis Discharge Problem: Syncope Qualifiers: Syncope type: unspecified Qualified Code(s): R55 - Syncope and collapse Instructions Instructions: Nonspecific Chest Pain, [id number] Forms: Excuse From Work or School Precautions for COVID19 Patient Portal Social Distancing
[2020-06-25 06:14] LABS: BASOPHILS # (AUTO) 0.1 X10^3/uL (0.0-0.1); BASOPHILS % (AUTO) 1.1 % (0.2-1.0); EOSINOPHILS # (AUTO) 0.3 x10^3/uL (0.0-0.2); EOSINOPHILS % (AUTO) 3.2 % (0.9-2.9); HEMATOCRIT 43.8 % (42.0-54.0); HEMOGLOBIN 14.5 g/dL (13.5-18.0); LYMPHOCYTES # (AUTO) 1.4 X10^3/uL (1.3-2.9); LYMPHOCYTES % (AUTO) 16.5 % (21.0-51.0); MEAN CORPUSCULAR HEMOGLOBIN 31.9 pg (27.0-34.0); MEAN CORPUSCULAR HGB CONC 33.1 g/dL (33.0-35.0); MEAN CORPUSCULAR VOLUME 96.5 fL (80.0-100.0); MEAN PLATELET VOLUME 8.8 fL (7.4-11.0); MONOCYTES # (AUTO) 0.7 x10^3/uL (0.3-0.8); MONOCYTES % (AUTO) 7.7 % (0.0-13.0); NEUTROPHILS # (AUTO) 6.1 x10^3/uL (2.2-4.8); NEUTROPHILS % (AUTO) 71.5 % (42.0-75.0); PLATELET COUNT 275 X10^3/uL (150.0-450.0); RED BLOOD COUNT 4.54 X10^6/uL (4.7-6.0); RED CELL DISTRIBUTION WIDTH 15.4 % (11.6-16.5); WHITE BLOOD COUNT 8.5 X10^3/uL (3.6-10.0)
[2020-06-25 06:29] LABS: BLOOD UREA NITROGEN 17 mg/dL (7-18); CALCIUM 9.4 mg/dL (8.5-10.1); CARBON DIOXIDE 25.4 mmol/L (21-32); CHLORIDE 107 mmol/L (98-107); CREATININE 1.61 mg/dL (0.70-1.30); SODIUM 142 mmol/L (136-145); TROPONIN I < 0.02 ng/mL (0-1.5); eGFR NON BLACK RACES 47 (>60)
--- NOTE | 2020-06-25 06:32 | RAD ---
HISTORYShortness of breathSTUDYChest AP [id number] is status post median sternotomy and CABG. There is a loo p recorder overlying the cardiac apex. Heart size is normal. [place] are normal. Lungs are mildly hypoin flated but clear. No pleural effusions are identified. Bony thorax is unremarkable.IMPRESSIONLungs mi ldly hypoinflated but clearElectronically signed by: TARIQ CHUNG (Jun 25, 2020 06:31:06)
[2020-06-25 06:33] LABS: ALANINE AMINOTRANSFERASE 25 Units/L (12-78); ALBUMIN 3.3 g/dL (3.4-5.0); ALKALINE PHOSPHATASE 107 Units/L (46-116); ASPARTATE AMINO TRANSFERASE 24 Units/L (15-37); CKMB % 2.5 % (<4); CREATINE KINASE 40 Units/L (39-308); CREATINE KINASE MB < 1.0 ng/mL (0-4.0); TOTAL PROTEIN 7.1 g/dL (6.4-8.2)
[2020-06-25 08:04] LABS: BILIRUBIN,URINE NEGATIVE (NEGATIVE); BLOOD/HEMOGLOBIN,URINE NEGATIVE (NEGATIVE); GLUCOSE, URINE NEGATIVE (NEGATIVE); KETONES,URINE NEGATIVE (NEGATIVE); LEUKOCYTE ESTERASE ,URINE NEGATIVE (NEGATIVE); NITRITES,URINE NEGATIVE (NEGATIVE); PROTEIN,URINE 1+ (NEGATIVE); UROBILINOGEN,URINE 1+ (NORMAL)
[2020-06-25 08:05] LABS: COLOR,URINE YELLOW (YELLOW)
[2020-06-25 08:06] LABS: APPEARANCE,URINE CLEAR (CLEAR)
[2020-06-25 08:08] LABS: BACTERIA,URINE NEGATIVE /HPF (NEGATIVE); MUCUS,URINE FEW /HPF (NEGATIVE); RBC,URINE NONE SEEN /HPF (0-3); SQUAMOUS EPITHELIAL CELL,UR NEGATIVE /HPF (NEGATIVE)
[2020-06-25] MEDS ORDERED: NORCO 10/325 TAB PO ONE (08:34)
[2020-06-25] MEDS ORDERED: NEURONTIN CAP 300 MG PO ONE (08:35)
--- NOTE | 2020-06-25 08:37 | CT ---
HISTORYSyncopal episodes, altered mental statusSTUDYCT head without contrastTechnique: Axial noncontrast images with coronal and sagittal reformats. Dose reduction procedures were used with mA/kv adjusted for body size.COMPARISONNoneFINDINGSThe ventricles are normal in size shape and position. There are no areas of abnormal attenuation to suggest recent CVA, hemorrhage, mass lesion, or extra-axial fluid collection. 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 The visualized sinuses are clear. The calvarium is intact.IMPRESSIONNo definite acute intracranial abnormalityOld right occipital CVAElectronically signed by: TARIQ CHUNG (Jun 25, 2020 08:36:31)
[2020-06-25] MEDS ORDERED: NORCO 10/325 TAB ONE ×2 (08:38→15:28)
--- NOTE | 2020-06-25 09:19 | VAS ---
HISTORYSyncopeSTUDYBilateral carotid sonogramTechnique: Multiple grayscale sonographic images were obtained. Color duplex Doppler evaluation was performed.COMPARISONNonFINDINGSOn the right, no significant atherosclerotic plaque is identified. Peak systolic velocity internal carotid artery 40.5 cm/second. ICA/CCA ratio 0.81. Flow in the right vertebral artery was antegrade. On the left, no significant plaque is identified. Peak systolic velocity in the internal carotid artery 65.1 cm/second. ICA/CCA ratio 1.39. Flow in the left vertebral artery was antegrade.IMPRESSIONNo evidence for hemodynamically significant stenosis on either sideElectronically signed by: TARIQ CHUNG (Jun 25, 2020 09:18:32)
[2020-06-25 13:37] LABS: CKMB % 2.6 % (<4); CREATINE KINASE 39 Units/L (39-308); CREATINE KINASE MB < 1.0 ng/mL (0-4.0); TROPONIN I < 0.02 ng/mL (0-1.5)
[2020-06-25 14:07] VITALS: BMI 38.7
[2020-06-25] MEDS ORDERED: NEURONTIN CAP 300 MG PO PRN (15:19)
[2020-06-25] MEDS: NORCO 10/325 TAB PO SCH ×2 (15:31→20:29)
--- NOTE | 2020-06-25 17:28 | DR.H&P ---
H&P - History & Physical for Day of: H&P Date: 06/25/20 - Chief Complaint Chief Complaint: JOINT PAIN, IRREGULAR HEART RHYTHM - History of Present Illness History of Present Illness: PT IS 60 WM ER ADMISSION WITH CO SHOULDER PAIN. PT HAD EPISODE WITH "TIA"SYMPTOMS AND TACHYCARDIA. PT HAS PMH OF HTN, OA, CAD, CHF. PT HAD CE AND EKG IN ER. PT ADMITTED FOR TREATMENT AND EVALUATION OF ACUTE ILLNESS, IRREGULAR RHYTHM - Past Medical History Past Medical History: [place], Coronary Artery Disease, Hypertension, Anxiety, COPD - Past Surgical History Surgical History: CABG/Valve Surgery, Ortho Surgery - Family History Family Medical History: Diabetes Mellitus, Coronary Artery Disease, Hypertension - Social History Does patient currently use any type of tobacco product: Yes Have you used tobacco products in the last 12 months: Yes Type of Tobacco Use: Cigarettes Does any household member use tobacco: No Alcohol Use: None Drug Use: Prescription Drugs - Medications Home Medications: codeine Allergy (Verified 04/19/17 09:24) CONTINUE taking the following medications albuterol sulfate [ProAir HFA] 1 inh INHALATION Q4H 06/25/20 [History] amlodipine 10 mg PO DAILY 06/25/20 [History] aspirin [Aspir-81] 81 mg PO DAILY 06/25/20 [History] budesonide-formoterol [Symbicort] 2 puff INHALATION BID 06/25/20 [History] bupropion HCl 150 mg PO DAILY 06/25/20 [History] cyclobenzaprine 5 mg PO TID PRN 06/25/20 [History] furosemide 20 mg PO DAILY PRN 06/25/20 [History] gabapentin 300 mg PO BID PRN 06/25/20 [History] hydrocodone-acetaminophen [[place]] 1 tab PO BID 06/25/20 [History] metoprolol tartrate 25 mg PO BID 06/25/20 [History] quetiapine 100 mg PO HS PRN 06/25/20 [History] simvastatin 10 mg PO HS 06/25/20 [History] tiotropium bromide [Spiriva with HandiHaler] 1 cap INHALATION DAILY 06/25/20 [History] - Review of Systems Constitutional: No Symptoms Reported Eyes: No Symptoms Reported ENT: No Symptoms Reported Respiratory: SOB with Excertion Cardiovascular: Palpitations, Edema Gastrointestinal: No Symptoms Reported Genitourinary: No Symptoms Reported Musculoskeletal: Shoulder Pain, Back Pain, Leg Pain Skin: No Symptoms Reported Neurological: No Symptoms Reported - Physical Exam Vital Signs: Temperature 97.9 F Pulse Rate [Right Brachial] 59 Pulse Rate 63 Respiratory Rate 20 Blood Pressure [Right Arm] 119/68 Blood Pressure 168/81 O2 Sat by Pulse Oximetry 93 Oriented: Normal Eyes: Normal Ear: Normal Nose: Normal Throat: Normal Respiratory: RLL Diminished, LLL Diminished Cardiovascular: Normal, Edema : Normal Auscultation: Bowel Sounds: Normal Tenderness: Normal Musculoskeletal: Shoulder, Back:Lumbar Psychiatric: Normal Mood Description: Calm Speech Pattern: Clear, Appropriate - Assessment/Plan (1) Chest pain Status: Acute Plan: ADMIT, SERIAL CE AND EKG. CXR ON ADMISSION. BP AND CARDIAC MONITORING. VERIFY HOME MEDICATION, ASPIRIN AND STATIN THERAPY. AM LABS, PRN SUPPLEMENTAL O2 (2) degenerative disc disease Status: Acute (3) CAD (coronary artery disease) Status: Acute - Allergies Allergies/Adverse Reactions: Allergies Allergy/AdvReac Type Severity Reaction Status Date / Time codeine Allergy Verified 04/19/17 09:24
[2020-06-25 18:59] LABS: CKMB % 2.7 % (<4); CREATINE KINASE 37 Units/L (39-308); CREATINE KINASE MB < 1.0 ng/mL (0-4.0); TROPONIN I < 0.02 ng/mL (0-1.5)
[2020-06-25] MEDS ORDERED: PULMICORT NEB TX 0.5 MG NEB ONE (19:38)
[2020-06-25] MEDS: PULMICORT NEB TX 0.5 MG NEB SCH (20:20)
[2020-06-25] MEDS: Atrovent NEB TX 0.02% NEB SCH (20:20)
[2020-06-25] MEDS: VENTOLIN or PROAIR HFA IN PRN (20:20)
[2020-06-25] MEDS: LOPRESSOR TAB 25 MG PO SCH (21:00)
[2020-06-25] MEDS ORDERED: ZOCOR TAB 10 MG PO SCH (21:00)
[2020-06-26] MEDS: Atrovent NEB TX 0.02% NEB SCH ×3 (00:20→12:23)
[2020-06-26] MEDS: VENTOLIN or PROAIR HFA IN PRN ×4 (00:34→12:23)
[2020-06-26 00:59] LABS: CREATINE KINASE 30 Units/L (39-308); CREATINE KINASE MB < 1.0 ng/mL (0-4.0); TROPONIN I < 0.02 ng/mL (0-1.5)
[2020-06-26 08:20] VITALS: BP 130/78
[2020-06-26 08:48] LABS: CKMB % < 4.0 % (<4)
[2020-06-26] MEDS ORDERED: NORVASC TAB 10 MG PO SCH (09:00)
[2020-06-26] MEDS ORDERED: LASIX PO SCH (09:00)
[2020-06-26] MEDS: PULMICORT NEB TX 0.5 MG NEB SCH (09:07)
[2020-06-26] MEDS: NORCO 10/325 TAB PO SCH (09:30)
--- NOTE | 2020-06-26 09:59 | W.DIS.FURT ---
Summary of Discharge Discharge Summary of Date Date of Exam: 06/26/20 Admission Date Date of Admission: 06/25/20 Admission Diagnosis Patient Problems (Updated 06/25/20 @ 17:29 by KAREEN BATEMAN) CAD (coronary artery disease) (Acute) I25.10 Hospital Course: Pt is a 60 yo m pmhx HTN, CHF, CAD, OA, admitted for chest pain rule out and TIA symptoms. Pt had labs/imaging: Wbc 8.5, Hgb 14.5, Plt 275, Na 142, K 4.2, Cr 1.61, Gluc 90, CT brain no acute abnormality, U/S carotid no significant stenosis, CXR negative. Pt had Ekg NSR, and serieal cardiac enzymes negative x3. On day of discharge pt no longer experiencing symptoms, stable condition. Cardiac precautions discussed. Instructed to follow up with pcp in 1 week. Vital Signs: Vital Signs (72 hours) 06/25/20 05:35 06/25/20 05:41 06/25/20 05:46 Temperature 97.8 F Pulse Rate 69 59 L Pulse Rate [Right Brachial] Respiratory Rate 22 Blood Pressure 93/53 132/78 Blood Pressure [Right Arm] O2 Sat by Pulse Oximetry 97 06/25/20 06:00 06/25/20 06:01 06/25/20 06:08 Temperature Pulse Rate 56 L 56 L 57 L Pulse Rate [Right Brachial] Respiratory Rate 23 22 28 H Blood Pressure 108/60 113/77 Blood Pressure [Right Arm] O2 Sat by Pulse Oximetry 06/25/20 06:15 06/25/20 06:30 06/25/20 06:45 Temperature Pulse Rate 55 L 57 L 57 L Pulse Rate [Right Brachial] Respiratory Rate 25 H 23 Blood Pressure Blood Pressure [Right Arm] O2 Sat by Pulse Oximetry 96 97 95 06/25/20 07:00 06/25/20 07:15 06/25/20 07:30 Temperature Pulse Rate 54 L 55 L 55 L Pulse Rate [Right Brachial] Respiratory Rate 43 H 22 37 H Blood Pressure Blood Pressure [Right Arm] O2 Sat by Pulse Oximetry 96 96 97 06/25/20 07:45 06/25/20 08:30 06/25/20 08:45 Temperature Pulse Rate 56 L 56 L 55 L Pulse Rate [Right Brachial] Respiratory Rate 27 H 21 Blood Pressure Blood Pressure [Right Arm] O2 Sat by Pulse Oximetry 97 97 100 06/25/20 08:54 06/25/20 09:00 06/25/20 09:15 Temperature Pulse Rate 58 L 58 L Pulse Rate [Right Brachial] Respiratory Rate 18 32 H 35 H Blood Pressure Blood Pressure [Right Arm] O2 Sat by Pulse Oximetry 98 98 06/25/20 09:30 06/25/20 09:45 06/25/20 09:54 Temperature Pulse Rate 56 L 57 L Pulse Rate [Right Brachial] Respiratory Rate 30 H 31 H 22 Blood Pressure Blood Pressure [Right Arm] O2 Sat by Pulse Oximetry 98 99 06/25/20 10:00 06/25/20 10:15 06/25/20 10:30 Temperature Pulse Rate 56 L 58 L 57 L Pulse Rate [Right Brachial] Respiratory Rate 39 H 21 24 Blood Pressure Blood Pressure [Right Arm] O2 Sat by Pulse Oximetry 98 97 98 06/25/20 10:45 06/25/20 11:00 06/25/20 11:12 Temperature Pulse Rate 56 L 56 L 55 L Pulse Rate [Right Brachial] Respiratory Rate 19 28 H 19 Blood Pressure 144/81 Blood Pressure [Right Arm] O2 Sat by Pulse Oximetry 99 97 97 06/25/20 11:15 06/25/20 11:30 06/25/20 11:31 Temperature Pulse Rate 55 L 54 L 54 L Pulse Rate [Right Brachial] Respiratory Rate 34 H 32 H 22 Blood Pressure 168/81 Blood Pressure [Right Arm] O2 Sat by Pulse Oximetry 98 98 98 06/25/20 11:45 06/25/20 12:00 06/25/20 12:15 Temperature Pulse Rate 56 L 64 63 Pulse Rate [Right Brachial] Respiratory Rate 38 H Blood Pressure Blood Pressure [Right Arm] O2 Sat by Pulse Oximetry 06/25/20 12:47 06/25/20 15:31 06/25/20 16:00 Temperature 97.8 F 97.9 F Pulse Rate Pulse Rate [Right Brachial] 64 59 L Respiratory Rate 28 H 22 18 Blood Pressure Blood Pressure [Right Arm] 108/63 119/68 O2 Sat by Pulse Oximetry 96 93 L 06/25/20 16:31 06/25/20 20:00 06/25/20 20:20 Temperature 98.1 F Pulse Rate 61 Pulse Rate [Right Brachial] 65 Respiratory Rate 20 22 Blood Pressure Blood Pressure [Right Arm] 125/75 O2 Sat by Pulse Oximetry 97 97 06/25/20 20:29 06/25/20 21:29 06/26/20 00:00 Temperature 97.6 F Pulse Rate Pulse Rate [Right Brachial] 62 Respiratory Rate 20 20 24 Blood Pressure Blood Pressure [Right Arm] 121/70 O2 Sat by Pulse Oximetry 96 06/26/20 03:52 06/26/20 08:00 06/26/20 09:07 Temperature 97.8 F 97.6 F Pulse Rate 66 Pulse Rate [Right Brachial] 70 59 L Respiratory Rate 20 20 Blood Pressure Blood Pressure [Right Arm] 140/89 130/78 O2 Sat by Pulse Oximetry 97 98 96 06/26/20 09:30 Temperature Pulse Rate Pulse Rate [Right Brachial] Respiratory Rate 20 Blood Pressure Blood Pressure [Right Arm] O2 Sat by Pulse Oximetry Labs: Laboratory Last Values WBC 8.5 X10^3/uL (3.6-10.0) 06/25/20 05:48 RBC 4.54 X10^6/uL (4.7-6.0) L 06/25/20 05:48 Hgb 14.5 g/dL (13.5-18.0) 06/25/20 05:48 Hct 43.8 % (42.0-54.0) 06/25/20 05:48 MCV 96.5 fL (80.0-100.0) 06/25/20 05:48 MCH 31.9 pg (27.0-34.0) 06/25/20 05:48 MCHC 33.1 g/dL (33.0-35.0) 06/25/20 05:48 RDW 15.4 % (11.6-16.5) 06/25/20 05:48 Plt Count 275 X10^3/uL (150.0-450.0) 06/25/20 05:48 MPV 8.8 fL (7.4-11.0) 06/25/20 05:48 Neut % (Auto) 71.5 % (42.0-75.0) 06/25/20 05:48 Lymph % (Auto) 16.5 % (21.0-51.0) L 06/25/20 05:48 Barnes % (Auto) 7.7 % (0.0-13.0) 06/25/20 05:48 Eos % (Auto) 3.2 % (0.9-2.9) H 06/25/20 05:48 Baso % (Auto) 1.1 % (0.2-1.0) H 06/25/20 05:48 Neut # (Auto) 6.1 x10^3/uL (2.2-4.8) H 06/25/20 05:48 Lymph # (Auto) 1.4 X10^3/uL (1.3-2.9) 06/25/20 05:48 Barnes # (Auto) 0.7 x10^3/uL (0.3-0.8) 06/25/20 05:48 Eos # (Auto) 0.3 x10^3/uL (0.0-0.2) H 06/25/20 05:48 Baso # (Auto) 0.1 X10^3/uL (0.0-0.1) 06/25/20 05:48 Absolute Nucleated RBC 0.1 /100WBC 06/25/20 05:48 Sodium 142 mmol/L (136-145) 06/25/20 05:48 Corrected Sodium TNP 06/25/20 05:48 Potassium 4.2 mmol/L (3.5-5.1) 06/25/20 05:48 Chloride 107 mmol/L (98-107) 06/25/20 05:48 Carbon Dioxide 25.4 mmol/L (21-32) 06/25/20 05:48 BUN 17 mg/dL (7-18) 06/25/20 05:48 Creatinine 1.61 mg/dL (0.70-1.30) H 06/25/20 05:48 Est GFR (MDRD) Af Amer 57 (>60) L 06/25/20 05:48 Est GFR (MDRD) Non-Af 47 (>60) L 06/25/20 05:48 Glucose 90 mg/dL (65-99) 06/25/20 05:48 Calcium 9.4 mg/dL (8.5-10.1) 06/25/20 05:48 Corrected Calcium 10.0 mg/dL (8.5-10.1) 06/25/20 05:48 Total Bilirubin 0.40 mg/dL (0.2-1.0) 06/25/20 05:48 AST 24 Units/L (15-37) 06/25/20 05:48 ALT 25 Units/L (12-78) 06/25/20 05:48 Alkaline Phosphatase 107 Units/L (46-116) 06/25/20 05:48 Creatine Kinase 30 Units/L (39-308) L 06/26/20 00:25 CK-MB (CK-2) < 1.0 ng/mL (0-4.0) 06/26/20 00:25 CK/CKMB % Calc < 4.0 % (<4) 06/26/20 00:25 Troponin I < 0.02 ng/mL (0-1.5) 06/26/20 00:25 Total Protein 7.1 g/dL (6.4-8.2) 06/25/20 05:48 Albumin 3.3 g/dL (3.4-5.0) L 06/25/20 05:48 Globulin 3.8 g/dL (2.5-4.5) 06/25/20 05:48 Albumin/Globulin Ratio 0.9 Ratio (1.1-2.1) L 06/25/20 05:48 Specimen Type Clean catch urine 06/25/20 08:00 Urine Color Yellow (YELLOW) 06/25/20 08:00 Urine Appearance Clear (CLEAR) 06/25/20 08:00 Urine pH 6.0 (5.0 - 8.0) 06/25/20 08:00 Ur Specific [place] 1.010 (1.000-1.030) 06/25/20 08:00 Urine Protein 1+ (NEGATIVE) 06/25/20 08:00 Urine Glucose (UA) Negative (NEGATIVE) 06/25/20 08:00 Urine Ketones Negative (NEGATIVE) 06/25/20 08:00 Urine Occult Blood Negative (NEGATIVE) 06/25/20 08:00 Urine Nitrite Negative (NEGATIVE) 06/25/20 08:00 Urine Bilirubin Negative (NEGATIVE) 06/25/20 08:00 Urine Urobilinogen 1+ (NORMAL) 06/25/20 08:00 Ur Leukocyte Esterase Negative (NEGATIVE) 06/25/20 08:00 Urine RBC None seen /HPF (0-3) 06/25/20 08:00 Urine WBC None seen /HPF (0-5) 06/25/20 08:00 Ur Squamous Epith Cells Negative /HPF (NEGATIVE) 06/25/20 08:00 Urine Bacteria Negative /HPF (NEGATIVE) 06/25/20 08:00 Urine Mucus Few /HPF (NEGATIVE) 06/25/20 08:00 Ur Culture Indicated? No/not indicated 06/25/20 08:00 Urine Opiates Screen Negative (NEG=<300) 06/25/20 18:25 Urine Methadone Screen Negative (NEG=<300) 06/25/20 18:25 Ur Barbiturates Screen Negative (NEG=<200) 06/25/20 18:25 Ur Phencyclidine Scrn Negative (NEG=<25) 06/25/20 18:25 Ur Amphetamines Screen Negative (NEG=<1000) 06/25/20 18:25 U Benzodiazepines Scrn Negative (NEG=<200) 06/25/20 18:25 Urine Cocaine Screen Negative (NEG=<300) 06/25/20 18:25 U Marijuana (THC) Screen Negative (NEG=<50) 06/25/20 18:25 Reason For Visit: "PAIN IN KNEE LEFT SHOULDER" Discharge Date Discharge Date: 06/26/20 Discharge Diagnosis All Active Problems (Updated 06/25/20 @ 17:29 by KAREEN BATEMAN) degenerative disc disease (Acute) Back strain (Acute) Chest pain (Acute) Right knee pain (Acute) CAD (coronary artery disease) (Acute) Discharge Medications Discharge Medications: codeine Allergy (Verified 04/19/17 09:24) CONTINUE taking the following medications albuterol sulfate [ProAir HFA] 1 inh INHALATION Q4H 06/25/20 [History] amlodipine 10 mg PO DAILY 06/25/20 [History] aspirin [Aspir-81] 81 mg PO DAILY 06/25/20 [History] budesonide-formoterol [Symbicort] 2 puff INHALATION BID 06/25/20 [History] bupropion HCl 150 mg PO DAILY 06/25/20 [History] cyclobenzaprine 5 mg PO TID PRN 06/25/20 [History] furosemide 20 mg PO DAILY PRN 06/25/20 [History] gabapentin 300 mg PO BID PRN 06/25/20 [History] hydrocodone-acetaminophen [[place]] 1 tab PO BID 06/25/20 [History] metoprolol tartrate 25 mg PO BID 06/25/20 [History] quetiapine 100 mg PO HS PRN 06/25/20 [History] simvastatin 10 mg PO HS 06/25/20 [History] tiotropium bromide [Spiriva with HandiHaler] 1 cap INHALATION DAILY 06/25/20 [History] Discharge Disposition Discharge Disposition: Home Discharge Condition: Stable
[2020-06-26] MEDS: LOPRESSOR TAB 25 MG PO SCH (10:09)
== END 2020-06-26 13:10 | disposition home or self-care (01) ==
LOC: MED/SURG 05:30 → ER 05:30 → MED/SURG 12:30
PROVIDERS: ADMIT Family Medicine; ATTEND Internal Medicine
DX: J44.9 Chronic obstructive pulmonary disease, unspecified; M25.512 Pain in left shoulder; R06.02 Shortness of breath; I10 Essential (primary) hypertension; I25.10 Atherosclerotic heart disease of native coronary artery without angina pectoris; M25.561 Pain in right knee; R07.89 Other chest pain; R41.82 Altered mental status, unspecified; F41.8 Other specified anxiety disorders; Z79.899 Other long term (current) drug therapy; R94.31 Abnormal electrocardiogram [ECG] [EKG]; R55 Syncope and collapse

== ENCOUNTER 2022-03-29 12:02 | Inpatient (IN) ==
[2022-03-29 13:20] LABS: BASOPHILS # (AUTO) 0.1 X10^3/uL (0.0-0.1); BASOPHILS % (AUTO) 0.9 % (0.2-1.0); EOSINOPHILS # (AUTO) 0.2 x10^3/uL (0.0-0.2); EOSINOPHILS % (AUTO) 3.6 % (0.9-2.9); HEMATOCRIT 42.4 % (42.0-54.0); HEMOGLOBIN 14.2 g/dL (13.5-18.0); LYMPHOCYTES # (AUTO) 1.1 X10^3/uL (1.3-2.9); MEAN CORPUSCULAR HEMOGLOBIN 30.9 pg (27.0-34.0); MEAN CORPUSCULAR HGB CONC 33.5 g/dL (33.0-35.0); MEAN CORPUSCULAR VOLUME 92.2 fL (80.0-100.0); MEAN PLATELET VOLUME 8.2 fL (7.4-11.0); MONOCYTES # (AUTO) 0.8 x10^3/uL (0.3-0.8); MONOCYTES % (AUTO) 12.8 % (0.0-13.0); NEUTROPHILS # (AUTO) 4.1 x10^3/uL (2.2-4.8); NEUTROPHILS % (AUTO) 64.7 % (42.0-75.0); RED CELL DISTRIBUTION WIDTH 14.1 % (11.6-16.5); WHITE BLOOD COUNT 6.3 X10^3/uL (3.6-10.0)
[2022-03-29 13:41] LABS: ALBUMIN 2.8 g/dL (3.4-5.0); CARBON DIOXIDE 25.1 mmol/L (21-32); CREATININE 1.6 mg/dL (0.70-1.30); TOTAL PROTEIN 6.6 g/dL (6.4-8.2)
[2022-03-29] MEDS: NORCO 10/325 TAB PO PRN ×2 (13:43→23:54)
[2022-03-29 13:44] LABS: LACTIC ACID 2.3 mmol/L (0.4-2.0)
[2022-03-29] MEDS: NS 1,000 ML IV 1,000 ML IV SCH (15:06)
[2022-03-29] MEDS: VANCOMYCIN IV *PREMIX 1.5 G/300 ML BAG 1.5 G/300 ML PIGGYBACK IV SCH (15:06)
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
[2022-03-29] MEDS: LOPRESSOR TAB 25 MG PO SCH (20:37)
[2022-03-29] MEDS: ZOCOR TAB 10 MG PO SCH (20:37)
[2022-03-29] MEDS: NEURONTIN CAP 300 MG PO PRN (20:38)
[2022-03-29] MEDS: PULMICORT NEB TX 0.5 MG NEB SCH (21:30)
[2022-03-29] MEDS: PROVENTIL NEB TX 0.083% 2.5MG/ 3ML NEB SCH (21:30)
[2022-03-30] MEDS: PROVENTIL NEB TX 0.083% 2.5MG/ 3ML NEB SCH ×6 (01:45→20:54)
--- NOTE | 2022-03-30 03:20 | CT ---
PROCEDURE: CT Right Elbow without Contrast .HISTORY: Right elbow cellulitis.TECHNIQUE: Axial images were performed through the right elbow without the administration of IV contrast with multiplanar reformations . Dose reduction techniques including Automated Exposure Control (AEC) and adjustment of mA and kV were utilized .COMPARISON: None .TECHNICAL QUALITY: Satisfactory .FINDINGS:No acute fracture or dislocation.No significant degenerative change.No joint fluid.Some dystrophic calcifications adjacent to the olecranon posteriorly.There is fluid in the olecranon bursa with thickening of the bursal wall and moderate stranding in the region could be related to bursitis. [id number] stranding and non loculated fluid remainder of the subcutaneous fat lateral and medial to the elbow. No soft tissue air. 1 cm lymph node near the medial epicondyles in subcutaneous fat.Visualized muscle compartments are unremarkable.IMPRESSION:1. Possible bursitis involving olecranon bursa as described above with fluid in the bursa and thickened wall.2. Subcutaneous fat inflammation or edema about the elbow.3. No acute bony abnormality.4. Visualized muscle compartments are unremarkable.Electronically signed by: Ebenezer Maya (Mar 30, 2022 03:19:30)
[2022-03-30 06:15] LABS: BASOPHILS % (AUTO) 0.9 % (0.2-1.0); EOSINOPHILS # (AUTO) 0.3 x10^3/uL (0.0-0.2); EOSINOPHILS % (AUTO) 6.5 % (0.9-2.9); HEMATOCRIT 40.5 % (42.0-54.0); HEMOGLOBIN 13.7 g/dL (13.5-18.0); LYMPHOCYTES # (AUTO) 1.1 X10^3/uL (1.3-2.9); LYMPHOCYTES % (AUTO) 23.1 % (21.0-51.0); MEAN CORPUSCULAR HEMOGLOBIN 31.2 pg (27.0-34.0); MEAN CORPUSCULAR HGB CONC 33.8 g/dL (33.0-35.0); MEAN CORPUSCULAR VOLUME 92.5 fL (80.0-100.0); MEAN PLATELET VOLUME 7.9 fL (7.4-11.0); MONOCYTES # (AUTO) 0.5 x10^3/uL (0.3-0.8); MONOCYTES % (AUTO) 11.1 % (0.0-13.0); NEUTROPHILS # (AUTO) 2.8 x10^3/uL (2.2-4.8); NEUTROPHILS % (AUTO) 58.4 % (42.0-75.0); RED BLOOD COUNT 4.38 X10^6/uL (4.7-6.0); WHITE BLOOD COUNT 4.8 X10^3/uL (3.6-10.0)
[2022-03-30 06:25] LABS: ALANINE AMINOTRANSFERASE 102 Units/L (12-78); ALBUMIN 2.4 g/dL (3.4-5.0); ALKALINE PHOSPHATASE 78 Units/L (46-116); ASPARTATE AMINO TRANSFERASE 122 Units/L (15-37); BLOOD UREA NITROGEN 13 mg/dL (7-18); CALCIUM 8.3 mg/dL (8.5-10.1); CHLORIDE 109 mmol/L (98-107); COR CA(FOR HYPOALB) 9.6 mg/dL (8.5-10.1); COR NA(FOR HYPERGLY) 142 mmol/L (136-145); CREATININE 1.27 mg/dL (0.70-1.30); SODIUM 141 mmol/L (136-145); TOTAL PROTEIN 5.9 g/dL (6.4-8.2); eGFR NON BLACK RACES > 60 (>60)
[2022-03-30] MEDS: VANCOMYCIN IV *PREMIX 1.5 G/300 ML BAG 1.5 G/300 ML PIGGYBACK IV SCH (08:23)
[2022-03-30] MEDS: PROzac PO SCH (08:23)
[2022-03-30] MEDS: LOPRESSOR TAB 25 MG PO SCH ×2 (08:23→21:15)
[2022-03-30] MEDS: WELLBUTRIN XL 150 MG (DAILY) PO SCH (08:23)
[2022-03-30] MEDS: ASPIRIN EC 81 MG PO SCH (08:23)
[2022-03-30] MEDS: NORCO 10/325 TAB PO PRN ×2 (08:24→18:18)
[2022-03-30] MEDS: NEURONTIN CAP 300 MG PO PRN ×2 (08:24→21:16)
[2022-03-30] MEDS: LOVENOX INJ 40 MG SYR SC SCH (08:39)
[2022-03-30] MEDS: PULMICORT NEB TX 0.5 MG NEB SCH ×2 (09:00→20:54)
--- NOTE | 2022-03-30 09:13 | RAD ---
HISTORYCADSTUDYCHEST, 1 [id number]/2022.TECHNIQUEAP view of the chestFINDINGSStatus post median sternotomy and CABG. Soft tissue attenuation limits evaluation.[The cardiac and mediastinal contours are within normal limits. The lungs are clear without focal consolidation or segmental collapse. No pleural effusion or pneumothorax.]IMPRESSIONNo acute pulmonary process.Electronically signed by: Noé Fortune (Mar 30, 2022 09:12:37)
[2022-03-30] MEDS: NS 1,000 ML IV 1,000 ML IV SCH (14:34)
[2022-03-30] MEDS: ZOCOR TAB 10 MG PO SCH (21:15)
[2022-03-31] MEDS: PROVENTIL NEB TX 0.083% 2.5MG/ 3ML NEB SCH ×4 (00:14→14:00)
[2022-03-31] MEDS: NORCO 10/325 TAB PO PRN ×2 (04:20→13:06)
[2022-03-31 05:05] LABS: BASOPHILS # (AUTO) 0.1 X10^3/uL (0.0-0.1); BASOPHILS % (AUTO) 1.3 % (0.2-1.0); EOSINOPHILS # (AUTO) 0.3 x10^3/uL (0.0-0.2); EOSINOPHILS % (AUTO) 5.1 % (0.9-2.9); HEMATOCRIT 38.2 % (42.0-54.0); HEMOGLOBIN 12.8 g/dL (13.5-18.0); LYMPHOCYTES # (AUTO) 1.2 X10^3/uL (1.3-2.9); LYMPHOCYTES % (AUTO) 21.1 % (21.0-51.0); MEAN CORPUSCULAR HEMOGLOBIN 30.9 pg (27.0-34.0); MEAN CORPUSCULAR HGB CONC 33.7 g/dL (33.0-35.0); MEAN CORPUSCULAR VOLUME 91.9 fL (80.0-100.0); MEAN PLATELET VOLUME 8.1 fL (7.4-11.0); MONOCYTES # (AUTO) 0.7 x10^3/uL (0.3-0.8); MONOCYTES % (AUTO) 12.7 % (0.0-13.0); NEUTROPHILS # (AUTO) 3.3 x10^3/uL (2.2-4.8); NEUTROPHILS % (AUTO) 59.8 % (42.0-75.0); RED BLOOD COUNT 4.15 X10^6/uL (4.7-6.0); WHITE BLOOD COUNT 5.5 X10^3/uL (3.6-10.0)
[2022-03-31 05:15] LABS: ALANINE AMINOTRANSFERASE 93 Units/L (12-78); ALBUMIN 2.3 g/dL (3.4-5.0); ALKALINE PHOSPHATASE 77 Units/L (46-116); ASPARTATE AMINO TRANSFERASE 92 Units/L (15-37); BLOOD UREA NITROGEN 14 mg/dL (7-18); CALCIUM 8.1 mg/dL (8.5-10.1); CARBON DIOXIDE 28.4 mmol/L (21-32); CHLORIDE 110 mmol/L (98-107); COR CA(FOR HYPOALB) 9.5 mg/dL (8.5-10.1); CREATININE 1.12 mg/dL (0.70-1.30); SODIUM 143 mmol/L (136-145); TOTAL PROTEIN 5.7 g/dL (6.4-8.2); eGFR NON BLACK RACES > 60 (>60)
[2022-03-31] MEDS: LOPRESSOR TAB 25 MG PO SCH (08:46)
[2022-03-31] MEDS: LOVENOX INJ 40 MG SYR SC SCH (08:46)
[2022-03-31] MEDS: ASPIRIN EC 81 MG PO SCH (08:46)
[2022-03-31] MEDS: VANCOMYCIN IV *PREMIX 1.5 G/300 ML BAG 1.5 G/300 ML PIGGYBACK IV SCH (08:47)
[2022-03-31] MEDS: PROzac PO SCH (08:47)
[2022-03-31] MEDS: WELLBUTRIN XL 150 MG (DAILY) PO SCH (08:47)
[2022-03-31] MEDS: PULMICORT NEB TX 0.5 MG NEB SCH (09:30)
[2022-03-31] MEDS ORDERED: COLACE CAP 100 MG PO PRN (10:13)
[2022-03-31] MEDS ORDERED: MILK OF MAGNESIA PO PRN (10:13)
[2022-03-31 11:34] VITALS: BP 136/65
[2022-03-31] MEDS: NS 1,000 ML IV 1,000 ML IV SCH (14:30)
[2022-04-01] MEDS ORDERED: PHARMACY COMMENT IV NR (08:30)
== END 2022-03-31 15:30 | disposition short-term general hospital (02) | DRG 603 ==
LOC: MED/SURG
PROVIDERS: ADMIT Internal Medicine; ATTEND Internal Medicine

== ENCOUNTER 2022-12-04 15:02 | Inpatient (IN) ==
[2022-12-04 16:11] VITALS: BMI 36.1
[2022-12-04] MEDS ORDERED: APRESOLINE TAB 25 MG PO PRN (17:32)
--- NOTE | 2022-12-04 17:39 | EKG ---
Test Reason : chf, cad, sob Blood Pressure : */* mmHG Vent. Rate : 54 BPM Atrial Rate : 54 BPM P-R Int : 194 ms QRS Dur : 108 ms QT Int : 482 ms P-R-T Axes : 40 -35 36 degrees QTc Int : 457 ms Sinus bradycardia Left axis deviation Incomplete right bundle branch block Minimal voltage criteria for LVH, may be normal variant ( R in aVL ) Abnormal ECG No previous ECGs available Confirmed by Jaylen Samuel ([id number]) on 12/04/2022 6:19:30 PM Referred By: Confirmed By: Jaylen Samuel
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
[2022-12-04 17:59] LABS: BASOPHILS # (AUTO) 0.1 X10^3/uL (0.0-0.1); EOSINOPHILS # (AUTO) 0.2 x10^3/uL (0.0-0.2); EOSINOPHILS % (AUTO) 3.7 % (0.9-2.9); HEMATOCRIT 35.3 % (42.0-54.0); HEMOGLOBIN 11.9 g/dL (13.5-18.0); LYMPHOCYTES % (AUTO) 20.3 % (21.0-51.0); MEAN CORPUSCULAR HEMOGLOBIN 34.6 pg (27.0-34.0); MEAN CORPUSCULAR HGB CONC 33.5 g/dL (33.0-35.0); MEAN CORPUSCULAR VOLUME 103.3 fL (80.0-100.0); MEAN PLATELET VOLUME 7.7 fL (7.4-11.0); MONOCYTES # (AUTO) 0.5 x10^3/uL (0.3-0.8); RED BLOOD COUNT 3.42 X10^6/uL (4.7-6.0); RED CELL DISTRIBUTION WIDTH 14.5 % (11.6-16.5); WHITE BLOOD COUNT 4.8 X10^3/uL (3.6-10.0)
[2022-12-04 18:12] LABS: ALANINE AMINOTRANSFERASE 176 Units/L (12-78); ALKALINE PHOSPHATASE 84 Units/L (46-116); ASPARTATE AMINO TRANSFERASE 244 Units/L (15-37); BLOOD UREA NITROGEN 24 mg/dL (7-18); CALCIUM 9.1 mg/dL (8.5-10.1); CARBON DIOXIDE 28.1 mmol/L (21-32); CHLORIDE 107 mmol/L (98-107); COR CA(FOR HYPOALB) 9.9 mg/dL (8.5-10.1); CREATINE KINASE 40 Units/L (39-308); CREATININE 1.15 mg/dL (0.70-1.30); MAGNESIUM 1.8 mg/dL (2.0-2.9); SODIUM 142 mmol/L (136-145); TOTAL PROTEIN 6.3 g/dL (6.4-8.2); eGFR NON BLACK RACES > 60 (>60)
[2022-12-04] MEDS: PROTONIX INJ 40 MG VIAL IVP SCH (18:25)
[2022-12-04] MEDS: NS 1,000 ML IV 1,000 ML IV SCH (18:26)
[2022-12-04] MEDS: MICRO K EXTEN CAP 10 MEQ PO SCH (18:27)
[2022-12-04 18:39] LABS: BILIRUBIN,URINE NEGATIVE (NEGATIVE); BLOOD/HEMOGLOBIN,URINE NEGATIVE (NEGATIVE); GLUCOSE, URINE NEGATIVE (NEGATIVE); KETONES,URINE NEGATIVE (NEGATIVE); LEUKOCYTE ESTERASE ,URINE NEGATIVE (NEGATIVE); NITRITES,URINE NEGATIVE (NEGATIVE); PH,URINE 6.5 (5.0 - 8.0); PROTEIN,URINE NEGATIVE (NEGATIVE); UROBILINOGEN,URINE 1+ (NORMAL)
[2022-12-04 18:47] LABS: APPEARANCE,URINE CLEAR (CLEAR); BACTERIA,URINE TRACE /HPF (NEGATIVE); COLOR,URINE YELLOW (YELLOW); RBC,URINE NONE SEEN /HPF (0-3); SQUAMOUS EPITHELIAL CELL,UR RARE /HPF (NEGATIVE)
[2022-12-04] MEDS ORDERED: PULMICORT NEB TX 0.5 MG NEB ONE (19:59)
[2022-12-04] MEDS: ZOCOR TAB 10 MG PO SCH (20:48)
[2022-12-04] MEDS: LOPRESSOR TAB 25 MG PO SCH (20:48)
[2022-12-04] MEDS: NEURONTIN CAP 300 MG PO SCH (20:48)
[2022-12-04] MEDS: NORCO 5/325 MG TAB PO PRN (20:49)
[2022-12-04] MEDS: PULMICORT NEB TX 0.5 MG NEB SCH (21:00)
--- NOTE | 2022-12-04 22:54 | EKG ---
Test Reason : chf, cad, sob Blood Pressure : */* mmHG Vent. Rate : 54 BPM Atrial Rate : 54 BPM P-R Int : 194 ms QRS Dur : 112 ms QT Int : 452 ms P-R-T Axes : 34 -31 53 degrees QTc Int : 428 ms Sinus bradycardia Left axis deviation Incomplete right bundle branch block Moderate voltage criteria for LVH, may be normal variant ( R in aVL , Darni product ) Abnormal ECG When compared with ECG of 04-DEC-2022 17:33, No significant change was found Confirmed by Jaylen Samuel (4) on 12/05/2022 3:34:10 PM Referred By: Confirmed By: Jaylen Samuel
--- NOTE | 2022-12-05 04:51 | EKG ---
Test Reason : chf, cad, sob Blood Pressure : */* mmHG Vent. Rate : 50 BPM Atrial Rate : 50 BPM P-R Int : 204 ms QRS Dur : 112 ms QT Int : 494 ms P-R-T Axes : 27 -29 29 degrees QTc Int : 450 ms Sinus bradycardia Incomplete right bundle branch block Borderline ECG When compared with ECG of 04-DEC-2022 22:48, (Unconfirmed) No significant change was found Confirmed by Jaylen Samuel (4) on 12/05/2022 3:36:02 PM Referred By: Confirmed By: Jaylen Samuel
[2022-12-05 06:01] LABS: BASOPHILS % (AUTO) 0.3 % (0.2-1.0); EOSINOPHILS # (AUTO) 0.2 x10^3/uL (0.0-0.2); EOSINOPHILS % (AUTO) 4.5 % (0.9-2.9); HEMATOCRIT 32.4 % (42.0-54.0); HEMOGLOBIN 10.8 g/dL (13.5-18.0); LYMPHOCYTES # (AUTO) 1.2 X10^3/uL (1.3-2.9); LYMPHOCYTES % (AUTO) 31.6 % (21.0-51.0); MEAN CORPUSCULAR HEMOGLOBIN 34.5 pg (27.0-34.0); MEAN CORPUSCULAR HGB CONC 33.4 g/dL (33.0-35.0); MEAN CORPUSCULAR VOLUME 103.2 fL (80.0-100.0); MONOCYTES # (AUTO) 0.5 x10^3/uL (0.3-0.8); MONOCYTES % (AUTO) 12.4 % (0.0-13.0); NEUTROPHILS % (AUTO) 51.2 % (42.0-75.0); RED BLOOD COUNT 3.14 X10^6/uL (4.7-6.0); RED CELL DISTRIBUTION WIDTH 14.2 % (11.6-16.5); WHITE BLOOD COUNT 3.9 X10^3/uL (3.6-10.0)
[2022-12-05 06:19] LABS: ALANINE AMINOTRANSFERASE 151 Units/L (12-78); ALBUMIN 2.7 g/dL (3.4-5.0); ALKALINE PHOSPHATASE 71 Units/L (46-116); ASPARTATE AMINO TRANSFERASE 203 Units/L (15-37); BLOOD UREA NITROGEN 20 mg/dL (7-18); CALCIUM 8.6 mg/dL (8.5-10.1); CARBON DIOXIDE 28.1 mmol/L (21-32); CHLORIDE 109 mmol/L (98-107); COR CA(FOR HYPOALB) 9.6 mg/dL (8.5-10.1); CREATININE 1.14 mg/dL (0.70-1.30); SODIUM 144 mmol/L (136-145); TOTAL PROTEIN 5.6 g/dL (6.4-8.2); eGFR NON BLACK RACES > 60 (>60)
--- NOTE | 2022-12-05 07:19 | RAD ---
HISTORYSyncopeSTUDYChest AP [id number] ent is status post median sternotomy and CABG. Heart size is normal. There is a loop recorder device overlying the left chest. Lung santiago are clear. No pleural effusions are identified. Bony thorax is unremarkable.IMPRESSIONNo significant abnormality identifiedElectronically signed by: TARIQ CHUNG (Dec 05, 2022 07:17:59)
--- NOTE | 2022-12-05 07:19 | RAD ---
HISTORYLeft elbow painSTUDYLeft elbow two viewsCOMPARISONNoneFINDINGSThere is no evidence for fracture, lytic, or blastic lesion. No joint effusion or joint erosion is identified. No periarticular soft tissue abnormality is identified.IMPRESSIONNo significant abnormality identifiedElectronically signed by: TARIQ CHUNG (Dec 05, 2022 07:18:33)
--- NOTE | 2022-12-05 07:20 | RAD ---
HISTORYLeft shoulder painSTUDYLeft shoulder 2 viewsCOMPARISONNoneFINDINGSThe clavicle, AC joint, scapula, glenohumeral joint, proximal humerus, and left upper ribs are intact. AC joint degenerative joint disease is present.IMPRESSIONAC joint degenerative joint diseaseElectronically signed by: TARIQ CHUNG (Dec 05, 2022 07:19:38)
[2022-12-05] MEDS: MICRO K EXTEN CAP 10 MEQ PO SCH (08:38)
[2022-12-05] MEDS: LOPRESSOR TAB 25 MG PO SCH ×2 (08:38→20:39)
[2022-12-05] MEDS: NEURONTIN CAP 300 MG PO SCH ×2 (08:38→20:38)
[2022-12-05] MEDS: PROTONIX INJ 40 MG VIAL IVP SCH (08:38)
[2022-12-05] MEDS: LASIX IVP SCH ×2 (08:39→16:25)
[2022-12-05] MEDS: NORCO 5/325 MG TAB PO PRN ×3 (08:41→20:39)
[2022-12-05] MEDS: PULMICORT NEB TX 0.5 MG NEB SCH ×2 (09:05→21:00)
--- NOTE | 2022-12-05 09:32 | CT ---
HISTORYSYNCOPESTUDYBRAIN W/O CONCOMPARISONCT brain 06/25/2020. Only the report is available at the time of this dictation (images not available).TECHNIQUEMultiple axial images of the head were performed from the skullbase to the vertex using standard departmental protocol. Sagittal and coronal reformatted images were performed. Dose reduction techniques including Automated Exposure Control (AEC) and adjustment of mA and kV were utilized.FINDINGSThe lateral ventricles and basilar cisterns are patent.No parenchymal mass or hematoma. Chronic appearing encephalomalacia at the left peripheral cerebellar hemisphere image 9 series 6 and at the right occipital lobe image 14 series 6 through image 20 series 6. Moderate low attenuation change in the subcortical and deep supratentorial white matter. Age-indeterminate right thalamus lacunar infarct image 16 series 6.No extra-axial collection.The globes are intact.No air fluid levels in the paranasal sinuses. No paranasal sinus wall thickening or sclerosis. Mastoid air cells are clear.The calvarium is intact.IMPRESSIONChronic appearing encephalomalacia in the left cerebellar hemisphere and right occipital lobe likely from chronic infarct. Moderate chronic small vessel disease.Age-indeterminate right thalamus lacunar infarct. Consider MRI of the brain for further evaluation as clinically warranted.Electronically signed by: Noé Fortune (Dec 05, 2022 09:31:17)
[2022-12-05] MEDS: LOVENOX INJ 40 MG SYR SC SCH (10:20)
[2022-12-05] MEDS: NS 1,000 ML IV 1,000 ML IV SCH (19:38)
[2022-12-05] MEDS: ZOCOR TAB 10 MG PO SCH (20:39)
[2022-12-06] MEDS: MAGNESIUM SULFATE 1 GRAM/100 mL PREMIX 1 G/100 ML BAG IV PRN ×2 (01:38→02:52)
[2022-12-06] MEDS: NORCO 5/325 MG TAB PO PRN ×3 (06:05→20:31)
[2022-12-06 06:33] LABS: BASOPHILS % (AUTO) 0.3 % (0.2-1.0); EOSINOPHILS # (AUTO) 0.2 x10^3/uL (0.0-0.2); EOSINOPHILS % (AUTO) 5.9 % (0.9-2.9); HEMATOCRIT 35.1 % (42.0-54.0); HEMOGLOBIN 11.7 g/dL (13.5-18.0); LYMPHOCYTES # (AUTO) 1.2 X10^3/uL (1.3-2.9); LYMPHOCYTES % (AUTO) 31.6 % (21.0-51.0); MEAN CORPUSCULAR HEMOGLOBIN 34.1 pg (27.0-34.0); MEAN CORPUSCULAR HGB CONC 33.4 g/dL (33.0-35.0); MEAN CORPUSCULAR VOLUME 102.1 fL (80.0-100.0); MEAN PLATELET VOLUME 8.1 fL (7.4-11.0); MONOCYTES # (AUTO) 0.5 x10^3/uL (0.3-0.8); MONOCYTES % (AUTO) 12.9 % (0.0-13.0); NEUTROPHILS # (AUTO) 1.9 x10^3/uL (2.2-4.8); NEUTROPHILS % (AUTO) 49.3 % (42.0-75.0); RED BLOOD COUNT 3.44 X10^6/uL (4.7-6.0); RED CELL DISTRIBUTION WIDTH 14.3 % (11.6-16.5)
[2022-12-06 06:43] LABS: ALANINE AMINOTRANSFERASE 183 Units/L (12-78); ALBUMIN 2.8 g/dL (3.4-5.0); ALKALINE PHOSPHATASE 77 Units/L (46-116); ASPARTATE AMINO TRANSFERASE 251 Units/L (15-37); BLOOD UREA NITROGEN 18 mg/dL (7-18); CALCIUM 8.3 mg/dL (8.5-10.1); CARBON DIOXIDE 29.9 mmol/L (21-32); CHLORIDE 106 mmol/L (98-107); CHOL/HDL RATIO 2.4 (0.0-5.0); CHOLESTEROL 112 mg/dL (0-200); COR CA(FOR HYPOALB) 9.3 mg/dL (8.5-10.1); CREATININE 1.17 mg/dL (0.70-1.30); HDL CHOLESTEROL 46 mg/dL (40-60); SODIUM 142 mmol/L (136-145); TRIGLYCERIDES 64 mg/dL (0-150); eGFR NON BLACK RACES > 60 (>60)
[2022-12-06] MEDS: PROTONIX INJ 40 MG VIAL IVP SCH (08:30)
[2022-12-06] MEDS: LASIX IVP SCH ×2 (08:30→17:41)
[2022-12-06] MEDS: MICRO K EXTEN CAP 10 MEQ PO SCH (08:31)
[2022-12-06] MEDS: NEURONTIN CAP 300 MG PO SCH ×2 (08:31→20:32)
[2022-12-06] MEDS: LOPRESSOR TAB 25 MG PO SCH ×2 (08:31→20:31)
[2022-12-06] MEDS: LOVENOX INJ 40 MG SYR SC SCH (08:31)
[2022-12-06] MEDS: PULMICORT NEB TX 0.5 MG NEB SCH ×2 (09:03→21:00)
[2022-12-06] MEDS: PLAVIX PO SCH ×2 (09:56→11:24)
--- NOTE | 2022-12-06 16:56 | VAS ---
HISTORY: Concern for carotid artery stenosis. Carotid atherosclerosis.EXAM: BILATERAL DOPPLER CAROTID ULTRASOUND EXAMTechnique: Multiple triana scale and color flow Doppler images of the right and left carotid arterial system were obtained. The vertebral arterial system was evaluated as well.Findings:Nonocclusive color flow Doppler is seen throughout the right and left carotid arterial system.Abnormally elevated velocities are seen within the right CCA vessel(s) in the [50-69]% stenosis range.Otherwise, there is moderate bilateral carotid atherosclerosis and mixed atherosclerotic plaque formation of the bilateral carotid bulbs and ICAs with associated intimal thickening but without evidence for any additional high-grade stenosis (>70%) or occlusion of the carotid arteries.The right and left vertebral artery demonstrate antegrade flow.IMPRESSION:Abnormally elevated velocities are seen within the right CCA vessel(s) in the [50-69]% stenosis range.Otherwise, there is moderate bilateral carotid atherosclerosis and mixed atherosclerotic plaque formation seen within the bilateral carotid bulbs and ICAs with associated intimal thickening but without evidence for any additional high-grade stenosis (>70%) or occlusion of the carotid arteries.The right and left vertebral artery demonstrate antegrade flow.Appropriate, antegrade, vertebral arterial flow.Peak right ICA velocity: 56 centimeter/seconds.Peak right CCA velocity: 130 centimeter/seconds.Peak left ICA velocity: 73 centimeter/seconds.Peak left CCA velocity: 96 centimeter/seconds.Right ICA to CCA ratio: 1.6.Left ICA to CCA ratio: 1.1.Electronically signed by: SUZANNE GALDAMEZ III (Dec 06, 2022 16:54:32)
[2022-12-06] MEDS: NS 1,000 ML IV 1,000 ML IV SCH (20:31)
[2022-12-06] MEDS: ZOCOR TAB 10 MG PO SCH (20:32)
[2022-12-07 05:35] LABS: BASOPHILS % (AUTO) 0.3 % (0.2-1.0); EOSINOPHILS # (AUTO) 0.2 x10^3/uL (0.0-0.2); EOSINOPHILS % (AUTO) 6.1 % (0.9-2.9); HEMATOCRIT 34.9 % (42.0-54.0); HEMOGLOBIN 11.7 g/dL (13.5-18.0); LYMPHOCYTES # (AUTO) 1.1 X10^3/uL (1.3-2.9); LYMPHOCYTES % (AUTO) 27.9 % (21.0-51.0); MEAN CORPUSCULAR HEMOGLOBIN 34.2 pg (27.0-34.0); MEAN CORPUSCULAR HGB CONC 33.4 g/dL (33.0-35.0); MEAN CORPUSCULAR VOLUME 102.4 fL (80.0-100.0); MONOCYTES # (AUTO) 0.5 x10^3/uL (0.3-0.8); MONOCYTES % (AUTO) 13.2 % (0.0-13.0); NEUTROPHILS % (AUTO) 52.5 % (42.0-75.0); RED BLOOD COUNT 3.41 X10^6/uL (4.7-6.0); RED CELL DISTRIBUTION WIDTH 13.8 % (11.6-16.5); WHITE BLOOD COUNT 3.9 X10^3/uL (3.6-10.0)
[2022-12-07 05:52] LABS: ALANINE AMINOTRANSFERASE 182 Units/L (12-78); ALBUMIN 2.7 g/dL (3.4-5.0); ALKALINE PHOSPHATASE 81 Units/L (46-116); ASPARTATE AMINO TRANSFERASE 235 Units/L (15-37); BLOOD UREA NITROGEN 19 mg/dL (7-18); CALCIUM 8.1 mg/dL (8.5-10.1); CARBON DIOXIDE 31.6 mmol/L (21-32); CHLORIDE 107 mmol/L (98-107); COR CA(FOR HYPOALB) 9.1 mg/dL (8.5-10.1); CREATININE 1.23 mg/dL (0.70-1.30); SODIUM 142 mmol/L (136-145); TOTAL PROTEIN 5.9 g/dL (6.4-8.2); eGFR NON BLACK RACES > 60 (>60)
[2022-12-07] MEDS: PULMICORT NEB TX 0.5 MG NEB SCH ×2 (08:35→20:10)
[2022-12-07] MEDS: LASIX IVP SCH ×2 (08:50→16:36)
[2022-12-07] MEDS: LOVENOX INJ 40 MG SYR SC SCH (08:50)
[2022-12-07] MEDS: NEURONTIN CAP 300 MG PO SCH ×2 (08:50→20:13)
[2022-12-07] MEDS: NORCO 5/325 MG TAB PO PRN ×3 (08:50→20:13)
[2022-12-07] MEDS: PROTONIX INJ 40 MG VIAL IVP SCH (08:50)
[2022-12-07] MEDS: MICRO K EXTEN CAP 10 MEQ PO SCH (08:52)
[2022-12-07] MEDS: PLAVIX PO SCH (08:52)
[2022-12-07] MEDS: LOPRESSOR TAB 25 MG PO SCH ×4 (08:52→20:12)
[2022-12-07] MEDS: NICOTINE PATCH TD SCH (11:45)
[2022-12-07] MEDS: ZOCOR TAB 10 MG PO SCH (20:12)
[2022-12-07] MEDS: NS 1,000 ML IV 1,000 ML IV SCH (20:15)
[2022-12-08] MEDS: NORCO 5/325 MG TAB PO PRN ×2 (04:52→10:46)
[2022-12-08 06:35] LABS: BASOPHILS % (AUTO) 0.4 % (0.2-1.0); EOSINOPHILS # (AUTO) 0.2 x10^3/uL (0.0-0.2); EOSINOPHILS % (AUTO) 5.1 % (0.9-2.9); HEMATOCRIT 34.3 % (42.0-54.0); HEMOGLOBIN 11.4 g/dL (13.5-18.0); LYMPHOCYTES % (AUTO) 27.8 % (21.0-51.0); MEAN CORPUSCULAR HGB CONC 33.4 g/dL (33.0-35.0); MEAN PLATELET VOLUME 8.1 fL (7.4-11.0); MONOCYTES # (AUTO) 0.6 x10^3/uL (0.3-0.8); MONOCYTES % (AUTO) 14.9 % (0.0-13.0); NEUTROPHILS # (AUTO) 1.9 x10^3/uL (2.2-4.8); NEUTROPHILS % (AUTO) 51.8 % (42.0-75.0); RED BLOOD COUNT 3.37 X10^6/uL (4.7-6.0); RED CELL DISTRIBUTION WIDTH 14.4 % (11.6-16.5); WHITE BLOOD COUNT 3.8 X10^3/uL (3.6-10.0)
[2022-12-08 06:46] LABS: ALANINE AMINOTRANSFERASE 169 Units/L (12-78); ALBUMIN 2.6 g/dL (3.4-5.0); ALKALINE PHOSPHATASE 82 Units/L (46-116); ASPARTATE AMINO TRANSFERASE 209 Units/L (15-37); BLOOD UREA NITROGEN 17 mg/dL (7-18); CALCIUM 8.1 mg/dL (8.5-10.1); CARBON DIOXIDE 29.2 mmol/L (21-32); CHLORIDE 107 mmol/L (98-107); COR CA(FOR HYPOALB) 9.2 mg/dL (8.5-10.1); CREATININE 1.13 mg/dL (0.70-1.30); SODIUM 141 mmol/L (136-145); TOTAL PROTEIN 5.8 g/dL (6.4-8.2); eGFR NON BLACK RACES > 60 (>60)
[2022-12-08] MEDS: PULMICORT NEB TX 0.5 MG NEB SCH (08:00)
--- NOTE | 2022-12-08 08:25 | RAD ---
HISTORYCHF, COPDSTUDYCHEST, 1 [id number]/27/2023.TECHNIQUEPA or AP view of the chestFINDINGSStatus post median sternotomy and CABG.The cardiac and mediastinal contours appear stable. No consolidation or segmental lung collapse. No definite pleural effusion or pneumothorax. Soft tissue attenuation limits evaluation.IMPRESSIONNo acute pulmonary process.Electronically signed by: Noé Fortune (Dec 08, 2022 08:24:14)
[2022-12-08] MEDS: LOVENOX INJ 40 MG SYR SC SCH (09:08)
[2022-12-08] MEDS: PROTONIX INJ 40 MG VIAL IVP SCH (09:08)
[2022-12-08] MEDS: MICRO K EXTEN CAP 10 MEQ PO SCH (09:08)
[2022-12-08] MEDS: NEURONTIN CAP 300 MG PO SCH (09:08)
[2022-12-08] MEDS: LOPRESSOR TAB 25 MG PO SCH (09:08)
[2022-12-08] MEDS: PLAVIX PO SCH (09:08)
[2022-12-08] MEDS: LASIX IVP SCH (09:08)
[2022-12-08] MEDS: NICOTINE PATCH TD SCH (09:09)
[2022-12-08 12:06] VITALS: BP 159/74
== END 2022-12-08 13:18 | DRG 292 ==
LOC: MED/SURG
PROVIDERS: ADMIT Internal Medicine; ATTEND Internal Medicine
DX: R55 Syncope and collapse; Z91.81 History of falling; M19.90 Unspecified osteoarthritis, unspecified site; Y92.9 Unspecified place or not applicable; Z74.2 Need for assistance at home and no other household member able to render care; I25.810 Atherosclerosis of coronary artery bypass graft(s) without angina pectoris; S59.901A Unspecified injury of right elbow, initial encounter; R79.89 Other specified abnormal findings of blood chemistry; I95.1 Orthostatic hypotension; Z74.1 Need for assistance with personal care; J44.9 Chronic obstructive pulmonary disease, unspecified; W19.XXXA Unspecified fall, initial encounter; Z20.822 Contact with and (suspected) exposure to COVID-19; M62.81 Muscle weakness (generalized); I10 Essential (primary) hypertension; I50.9 Heart failure, unspecified; F41.9 Anxiety disorder, unspecified; Y93.9 Activity, unspecified; R26.81 Unsteadiness on feet; D68.9 Coagulation defect, unspecified

== ENCOUNTER 2025-03-23 10:22 | Inpatient (IN) ==
--- NOTE | 2025-03-23 10:33 | DR.SOBA ---
HPI Time Seen Time Seen by Provider: 03/23/25 10:30 Complaints Chief Complaint Doctors Comments: Sent ov. er from correction with hypoxia O2 sat was in the 70s he does have a history of COPD. He had x-ray ordered by his primary care provider this morning and an ABG. The chest x-ray showed that he did have bilateral opacity which may be due to edema or pneumonia. Patient temperature when he got to the ER was 101.2. He is on oxygen in the correction but he was up to 3 L and he still was still saturating in the 80s. PMH PMH Past Medical History: Anxiety, Arthritis, COPD, Coronary Artery Disease, Depression, Hypertension and SC Past Surgical History: Yes Surgical History: CABG/Valve Surgery Family History Family Medical History: Hypertension Social History Do you use any recreational Drugs:: No ROS Review of Systems Constitutional: Fever and Other (shortness of breath) Eyes: No Symptoms Reported ENTM: No Symptoms Reported Respiratoy: Short of Breath Cardiovascular: No Symptoms Reported Gastrointestinal/Abdominal: No Symptoms Reported Genitourinary: No Symptoms Reported Neurological: No Symptoms Reported Musculoskeletal: No Symptoms Reported Integumentary: No Symptoms Reported Hematologic/Lymphatic: No Symptoms Reported Endocrine: No Symptoms Reported Psychiatric: No Symptoms Reported PE Vital Signs Vitals: Vital Signs Temperature 98.1 F Temperature 101.2 F Pulse Rate 59 Pulse Rate 59 Pulse Rate 60 Pulse Rate 59 Pulse Rate 59 Pulse Rate 59 Pulse Rate 59 Pulse Rate 58 Pulse Rate 59 Pulse Rate 60 Pulse Rate 61 Pulse Rate 61 Pulse Rate 61 Pulse Rate 61 Pulse Rate 63 Pulse Rate 68 Pulse Rate 63 Pulse Rate 63 Pulse Rate 64 Pulse Rate 66 Pulse Rate 66 Pulse Rate 66 Respiratory Rate 29 Respiratory Rate 51 Respiratory Rate 25 Respiratory Rate 28 Respiratory Rate 40 Respiratory Rate 30 Respiratory Rate 29 Respiratory Rate 32 Respiratory Rate 37 Respiratory Rate 36 Respiratory Rate 36 Respiratory Rate 35 Respiratory Rate 33 Respiratory Rate 32 Respiratory Rate 29 Respiratory Rate 11 Respiratory Rate 14 Respiratory Rate 24 Respiratory Rate 18 Respiratory Rate 30 Blood Pressure 104/52 Blood Pressure 119/58 Blood Pressure 119/58 Blood Pressure 130/56 Blood Pressure 110/57 Blood Pressure 108/58 Blood Pressure 107/56 Blood Pressure 108/54 Blood Pressure 112/60 Blood Pressure 117/56 Blood Pressure 122/58 Blood Pressure 134/59 Blood Pressure 148/66 Blood Pressure 143/67 Blood Pressure 143/67 O2 Sat by Pulse Oximetry 93 O2 Sat by Pulse Oximetry 93 O2 Sat by Pulse Oximetry 93 O2 Sat by Pulse Oximetry 94 O2 Sat by Pulse Oximetry 94 O2 Sat by Pulse Oximetry 94 O2 Sat by Pulse Oximetry 93 O2 Sat by Pulse Oximetry 94 O2 Sat by Pulse Oximetry 93 O2 Sat by Pulse Oximetry 94 O2 Sat by Pulse Oximetry 94 O2 Sat by Pulse Oximetry 89 O2 Sat by Pulse Oximetry 90 O2 Sat by Pulse Oximetry 88 O2 Sat by Pulse Oximetry 89 O2 Sat by Pulse Oximetry 90 O2 Sat by Pulse Oximetry 86 O2 Sat by Pulse Oximetry 78 O2 Sat by Pulse Oximetry 79 O2 Sat by Pulse Oximetry 76 General Limitations: Physical Limitation (paraplegic) General Appearance: In Distress (moderate distress) Head Head Exam: Normal Inspection and Atraumatic Eyes Eye exam: Normal Appearance and PERRL ENT ENT Exam: Normal Exam Neck Neck Exam: Normal Inspection, Full ROM and Trachea Midline Chest Chest Inspection: Normal Inspection Respiratory Respiratory Exam: Prolonged Expiratory Phase and Other (rhonchi bilaterally) Respiratory Exam: Bilateral: Rhonchi and Bilateral: Crackles Abdominal Exam Abdominal Exam: Normal Inspection Extremities Extremities Exam: Edema and Other (petechia) MDM Differential Diagnosis Differential Diagnosis: COPD, Pneumonia, Pulmonary embolism, URI and Other (hypoxia) COURSE Treatment Treatment: Initial evaluation was started on oxygen 3 L/min and he was up to 89 O2 saturation. The patient also had ABG that showed his oxygen was low in the 50s and he also had a Xopenex nebulizer and he was given Solu-Medrol 125 mg IV. The patient seems to have some decreased respiratory rate after he got this treatment. He had a chest x-ray done this morning by his primary care provider and it showed bilateral lower lobe opacities. The patient had a CBC done and his white count here was 25,000. The patient had lactic acid level done, blood cultures x 2, and he was given a gram of Rocephin IV here in the emergency department. At the time of the dictation of this note we did not have the results of the lactic acid back. This patient did get 1 g of Rocephin IV initially in the emergency department and subsequently got 1 g of vancomycin IV here. He got 1 mg of magnesium IV here also for low magnesium the patient had cardiac enzyme done initially 1 troponin was 119.9 and 2 hours it went up to 141.7. The patient also had a lactic acid level 1 first 1 was 4.42 hours it went down to 3. Patient also got Lasix 60 mg IV for BNP of 888. Eventually patient was placed on an OxyMask at 10 L/min/min and it kept his O2 sat around 92%. This patient was discussed with Dr. Posey at 1325 and he said admit the patient to ICU we have a diagnosis of bilateral pneumonia sepsis elevated cardiac enzyme COPD exacerbation hypomagnesemia. The patient was discussed with case management and she the patient will be put as an inpatient in ICU. ROR Labs Reviewed Laboratory Results Reviewed?: Yes 03/23/25 10:28 03/23/25 10:28 Laboratory: WBC 25.4 X10^3/uL (3.6-10.0) H 03/23/25 10:28 RBC 4.31 X10^6/uL (4.7-6.0) L 03/23/25 10:28 Hgb 13.3 g/dL (13.5-18.0) L 03/23/25 10:28 Hct 40.3 % (42.0-54.0) L 03/23/25 10:28 MCV 93.6 fL (80.0-100.0) 03/23/25 10:28 MCH 30.9 pg (27.0-34.0) 03/23/25 10:28 MCHC 33.0 g/dL (33.0-35.0) 03/23/25 10:28 RDW 15.9 % (11.6-16.5) 03/23/25 10:28 Plt Count 152 X10^3/uL (150.0-450.0) 03/23/25 10:28 Plt Count Comment Adequate (ADEQUATE) 03/23/25 10:28 MPV 9.4 fL (7.4-11.0) 03/23/25 10:28 Neut % (Auto) 88.5 % (42.0-75.0) H 03/23/25 10:28 Lymph % (Auto) 2.5 % (21.0-51.0) L 03/23/25 10:28 [place] % (Auto) 8.9 % (0.0-13.0) 03/23/25 10:28 Eos % (Auto) 0.0 % (0.9-2.9) L 03/23/25 10:28 Baso % (Auto) 0.1 % (0.2-1.0) L 03/23/25 10:28 Neut # (Auto) 22.4 x10^3/uL (2.2-4.8) H 03/23/25 10:28 Lymph # (Auto) 0.6 X10^3/uL (1.3-2.9) L 03/23/25 10:28 [place] # (Auto) 2.3 x10^3/uL (0.3-0.8) H 03/23/25 10:28 Eos # (Auto) 0.0 x10^3/uL (0.0-0.2) 03/23/25 10:28 Baso # (Auto) 0.0 X10^3/uL (0.0-0.1) 03/23/25 10:28 Absolute Nucleated RBC 0.1 /100WBC 03/23/25 10:28 Total Counted 100 03/23/25 10:28 Neutrophils % (Manual) 78 % (39-76) H 03/23/25 10:28 Band Neutrophils % 7 % (0-10) 03/23/25 10:28 Lymphocytes % (Manual) 9 % (13-43) L 03/23/25 10:28 Monocytes % (Manual) 4 % (4-9) 03/23/25 10:28 Metamyelocytes % 2 03/23/25 10:28 Plt Morphology Comment Normal (NORMAL) 03/23/25 10:28 RBC Morphology Normal (NORMAL) 03/23/25 10: PT 15.8 SECONDS (11.8-14.3) 03/23/25 10: INR Target Range - 03/23/25 10:28 INR 1.25 (0.8-1.3) 03/23/25 10: APTT 31.4 SECONDS (22.9-36.5) 03/23/25 10: PTT Comment - 03/23/25 10: Sample Site Rra 03/23/25 10:32 ABG pH 7.370 (7.35-7.45) 03/23/25 10:32 ABG pCO2 31.0 mmHg (35.0-45.0) L 03/23/25 10:32 ABG pO2 56.0 mmHg (80.0-100.0) L 03/23/25 10:32 ABG HCO3 17.9 mmol/L (22-26) L* 03/23/25 10:32 ABG O2 Saturation 88.0 % (90-100) L 03/23/25 10:32 ABG Base Excess -6.3 mmol/L (-2.0-2.0) L 03/23/25 10:32 Xavi Test Pos 03/23/25 10:32 A-a Gradient 618.0 mmHg 03/23/25 10:32 FiO2 100.0 03/23/25 10:32 Blood Gas Comments Pt charles well au 03/23/25 10:32 Sodium 136 mmol/L (136-145) 03/23/25 10:28 Corrected Sodium TNP 03/23/25 10:28 Potassium 4.8 mmol/L (3.5-5.1) 03/23/25 10:28 Chloride 103 mmol/L (98-107) 03/23/25 10:28 Carbon Dioxide 22.3 mmol/L (21-32) 03/23/25 10:28 BUN 29 mg/dL (7-18) H 03/23/25 10:28 Creatinine 2.35 mg/dL (0.70-1.30) H 03/23/25 10:28 Est GFR (MDRD) Af Amer 36 (>60) L 03/23/25 10:28 Est GFR (MDRD) Non-Af 30 (>60) L 03/23/25 10:28 Glucose 78 mg/dL (65-99) 03/23/25 10:28 Lactic Acid 3.0 mmol/L (0.4-2.0) H 03/23/25 12:32 Calcium 9.3 mg/dL (8.5-10.1) 03/23/25 10:28 Corrected Calcium 9.9 mg/dL (8.5-10.1) 03/23/25 10:28 Magnesium 1.5 mg/dL (2.0-2.9) L 03/23/25 10:28 Total Bilirubin 1.70 mg/dL (0.2-1.0) H 03/23/25 10:28 AST 54 Units/L (15-37) H 03/23/25 10:28 ALT 31 Units/L (12-78) 03/23/25 10:28 Alkaline Phosphatase 180 Units/L (46-116) H 03/23/25 10:28 Creatine Kinase 227 Units/L (39-308) 03/23/25 10:28 Troponin I High Sens 141.1 ng/L (4.0-60.0) H* 03/23/25 12:32 B-Natriuretic Peptide 888 pg/mL (0-79) H 03/23/25 10:28 Total Protein 6.9 g/dL (6.4-8.2) 03/23/25 10:28 Albumin 3.2 g/dL (3.4-5.0) L 03/23/25 10:28 Globulin 3.7 g/dL (2.5-4.5) 03/23/25 10: Albumin/Globulin Ratio 0.9 Ratio (1.1-2.1) L 03/23/25 10:28 Specimen Type Catherized urine 03/23/25 11:20 Urine Color Dark yellow (YELLOW) 03/23/25 11:20 Urine Appearance Slightly hazy (CLEAR) 03/23/25 11:20 Urine pH 6.0 (5.0 - 8.0) 03/23/25 11:20 Ur Specific Mauldin 1.015 (1.000-1.030) 03/23/25 11:20 Urine Protein 3+ (NEGATIVE) 03/23/25 11:20 Urine Glucose (UA) Negative (NEGATIVE) 03/23/25 11:20 Urine Ketones Negative (NEGATIVE) 03/23/25 11:20 Urine Blood 5+ (NEGATIVE) 03/23/25 11:20 Urine Nitrite Negative (NEGATIVE) 03/23/25 11:20 Urine Bilirubin 1+ (NEGATIVE) 03/23/25 11:20 Urine Urobilinogen 2+ (NORMAL) 03/23/25 11:20 Ur Leukocyte Esterase 3+ (NEGATIVE) 03/23/25 11:20 Urine RBC 10-20 /HPF (0-3) A 03/23/25 11:20 Urine WBC 10-20 /HPF (0-5) A 03/23/25 11:20 Ur Squamous Epith Cells Rare /HPF (NEGATIVE) 03/23/25 11:20 Amorphous Sediment 1+ /HPF (NEGATIVE) 03/23/25 11:20 Urine Bacteria 3+ /HPF (NEGATIVE) 03/23/25 11:20 Ur Culture Indicated? Yes/culture set up 03/23/25 11:20 SARS-CoV-2 (PCR) Negative (NEGATIVE) 03/23/25 10:28 Influenza Type A (PCR) Negative (NEGATIVE) 03/23/25 10:28 Influenza Type B (PCR) Negative (NEGATIVE) 03/23/25 10:28 RSV (PCR) Negative (NEGATIVE) 03/23/25 10:28 S. pyogenes (TEM-PCR) Not detected (NOT DETECT) 03/23/25 10:28 Opioid Opioid Risk Tool Age (Dom box if 16-45): No History of Preadolescent Sexual Abuse: No Total: 0 Total Score Risk Category: Low Risk Copyright: Mj IBANEZ predicting aberrant behaviors Discharge Plan Diagnosis Discharge Problem: Pneumonia, CHF (congestive heart failure), COPD (chronic obstructive pulmonary disease), Hypomagnesemia, Cardiac enzymes elevated, Sepsis, Chronic UTI (urinary tract infection) Discharge Plan Patient Disposition: 09 ADMITTED INPATIENT Condition: Stable Prescriptions: No Action hydrocodone-acetaminophen 5-325 mg tablet 1 tab PO Q12H PRN aspirin 81 mg tablet,delayed release (DR/EC) 81 mg PO QDAY simvastatin 10 mg tablet 10 mg PO HS budesonide-formoterol [Symbicort] 160-4.5 mcg/actuation Hfa Aerosol Inhaler 2 puff INHALATION BID furosemide 40 mg tablet 40 mg PO BID pantoprazole 40 mg tablet,delayed release (DR/EC) 40 mg PO BID nitroglycerin 0.4 mg Tablet, Sublingual 0.4 mg SUBLINGUAL .ASNEEDED PRN (Reason: Chest Pain) Rx Instructions: do not exceed 3 doses per episode cholecalciferol (vitamin D3) 1,250 mcg (50,000 unit) Tablet 1,250 mcg PO .EVERYSUNDAY Rx Instructions: Give 1 tablet by mouth every Sunday metoprolol tartrate 25 mg tablet 25 mg PO BID Patient Comments: TK 1 T PO BID fluoxetine 40 mg capsule 40 mg PO QDAY hydralazine 10 mg tablet 10 mg PO TID acetaminophen [Tylenol] 325 mg Tablet 650 mg PO Q4H PRN trazodone 50 mg Tablet 25 mg PO QDAY amlodipine 10 mg tablet 10 mg PO QDAY bupropion HCl 150 mg tablet extended release 24 hr 150 mg PO QDAY cholecalciferol (vitamin D3) 1,250 mcg (50,000 unit) Capsule 1,250 mcg PO QWEEK potassium chloride 10 mEq capsule, extended release 20 meq PO BID Health Concerns: Post Hospitalization: new medications and changes needed to prevent readmission or further decline. Pt educated and given instructions on all concerns. Plan of Treatment: Continue with present treatment and follow up plan. Pt is to keep follow up appointment as instructed and take medications as ordered. Orders to Discharge Patient Discharge Orders: Transfer (Routine); Ordered 03/23/25 Ordered By: Ronald Mello Follow ups/Referrals Follow ups/Referrals: RIA POSEY [Primary Care Provider, MEDICAL] - 3 days Instructions Stand Alone Forms: Find Help Web Site, Post Hospital Follow Up Care Print Language: [place]
[2025-03-23 10:35] LABS: ABG BASE EXCESS -6.3 mmol/L (-2.0-2.0)
[2025-03-23 10:36] LABS: ABG HCO3 17.9 mmol/L (22-26)
[2025-03-23] MEDS: SOLU-Medrol 125 MG VIAL IVP ONE (10:36)
[2025-03-23 10:37] LABS: ABG ALLEN TEST POS
[2025-03-23] MEDS: XOPENEX 1.25 MG/3 ML NEBULE NEB ONE ×2 (10:46→14:04)
--- NOTE | 2025-03-23 10:56 | EKG ---
Test Reason : short of breath, low O2 sat Blood Pressure : */* mmHG Vent. Rate : 64 BPM Atrial Rate : 64 BPM P-R Int : 170 ms QRS Dur : 106 ms QT Int : 442 ms P-R-T Axes : 52 -32 32 degrees QTc Int : 455 ms Normal sinus rhythm Left axis deviation Incomplete right bundle branch block Minimal voltage criteria for LVH, may be normal variant ( R in aVL ) T wave abnormality, consider anterior ischemia Abnormal ECG When compared with ECG of 01-JUL-2024 02:46, Non-specific change in ST segment in Inferior leads T wave inversion now evident in Anterior leads Confirmed by Sree Cadena MD ([id number]) on 03/23/2025 12:28:06 PM Referred By: Confirmed By: Sree Cadena MD
[2025-03-23] MEDS: OFIRMEV IV 1000 MG VIAL 1,000 MG/100 ML VIAL IV ONE ×2 (11:00→14:05)
[2025-03-23 11:08] LABS: BASOPHILS % (AUTO) 0.1 % (0.2-1.0); HEMATOCRIT 40.3 % (42.0-54.0); HEMOGLOBIN 13.3 g/dL (13.5-18.0); LYMPHOCYTES # (AUTO) 0.6 X10^3/uL (1.3-2.9); LYMPHOCYTES % (AUTO) 2.5 % (21.0-51.0); MEAN CORPUSCULAR HEMOGLOBIN 30.9 pg (27.0-34.0); MEAN CORPUSCULAR VOLUME 93.6 fL (80.0-100.0); MEAN PLATELET VOLUME 9.4 fL (7.4-11.0); MONOCYTES # (AUTO) 2.3 x10^3/uL (0.3-0.8); MONOCYTES % (AUTO) 8.9 % (0.0-13.0); NEUTROPHILS # (AUTO) 22.4 x10^3/uL (2.2-4.8); NEUTROPHILS % (AUTO) 88.5 % (42.0-75.0); PLATELET COUNT 152 X10^3/uL (150.0-450.0); RED BLOOD COUNT 4.31 X10^6/uL (4.7-6.0); RED CELL DISTRIBUTION WIDTH 15.9 % (11.6-16.5); WHITE BLOOD COUNT 25.4 X10^3/uL (3.6-10.0)
[2025-03-23 11:11] LABS: INR 1.25 (0.8-1.3)
[2025-03-23 11:33] LABS: BAND NEUTROPHILS % 7 % (0-10); PLATELET MORPHOLOGY COMMENT NORMAL (NORMAL)
[2025-03-23 11:33] LABS: BILIRUBIN,URINE 1+ (NEGATIVE); BLOOD/HEMOGLOBIN,URINE 5+ (NEGATIVE); GLUCOSE, URINE NEGATIVE (NEGATIVE); KETONES,URINE NEGATIVE (NEGATIVE); LEUKOCYTE ESTERASE ,URINE 3+ (NEGATIVE); NITRITES,URINE NEGATIVE (NEGATIVE); PROTEIN,URINE 3+ (NEGATIVE); UROBILINOGEN,URINE 2+ (NORMAL)
[2025-03-23 11:34] LABS: APPEARANCE,URINE SLIGHTLY HAZY (CLEAR); COLOR,URINE DARK YELLOW (YELLOW)
[2025-03-23 11:36] LABS: ALANINE AMINOTRANSFERASE 31 Units/L (12-78); ALBUMIN 3.2 g/dL (3.4-5.0); ALKALINE PHOSPHATASE 180 Units/L (46-116); ASPARTATE AMINO TRANSFERASE 54 Units/L (15-37); BLOOD UREA NITROGEN 29 mg/dL (7-18); CALCIUM 9.3 mg/dL (8.5-10.1); CARBON DIOXIDE 22.3 mmol/L (21-32); CHLORIDE 103 mmol/L (98-107); COR CA(FOR HYPOALB) 9.9 mg/dL (8.5-10.1); CREATINE KINASE 227 Units/L (39-308); CREATININE 2.35 mg/dL (0.70-1.30); GLUCOSE 78 mg/dL (65-99); MAGNESIUM 1.5 mg/dL (2.0-2.9); POTASSIUM 4.8 mmol/L (3.5-5.1); SODIUM 136 mmol/L (136-145); TOTAL PROTEIN 6.9 g/dL (6.4-8.2); eGFR NON BLACK RACES 30 (>60)
[2025-03-23] MEDS: ROCEPHIN VIAL 1 GRAM IV ONE (11:36)
[2025-03-23] MEDS: LASIX IVP ONE (11:36)
[2025-03-23 11:40] LABS: BACTERIA,URINE 3+ /HPF (NEGATIVE); SQUAMOUS EPITHELIAL CELL,UR RARE /HPF (NEGATIVE)
[2025-03-23] MEDS: VANCOMYCIN IV *PREMIX 1 G/200 ML BAG 1 G/200 ML PIGGYBACK IV ONE ×2 (11:43→14:05)
[2025-03-23 12:09] LABS: METAMYELOCYTES % 2
[2025-03-23] MEDS: SOLU-Medrol 125 MG VIAL ONE (14:04)
[2025-03-23] MEDS: PHARMACY CONSULT - VANCOMYCIN XX SCH (14:05)
[2025-03-23] MEDS: ROCEPHIN VIAL 1 GRAM 1 G in NS 100 ML IV 100 ML IV SCH (14:05)
[2025-03-23] MEDS ORDERED: NITROSTAT SL PRN (14:06)
[2025-03-23] MEDS: APRESOLINE TAB 10 MG PO SCH (14:33)
[2025-03-23] MEDS: VANCOMYCIN IV *PREMIX 500 mg/100 ML BAG 500 MG/100 ML PIGGYBACK IV NR (14:38)
[2025-03-23 15:29] VITALS: BMI 34.1
[2025-03-23] MEDS: LASIX IVP SCH (16:05)
[2025-03-23 16:28] LABS: ABG BASE EXCESS -4.3 mmol/L (-2.0-2.0); ABG HCO3 20.1 mmol/L (22-26)
[2025-03-23 16:29] LABS: ABG ALLEN TEST POS
[2025-03-23] MEDS: DUONEB 0.5 MG/3 MG (3 mL) NEB SCH (17:00)
[2025-03-23] MEDS: MORPHINE SULFATE INJ 2 MG INJ IVP PRN (17:03)
[2025-03-23] MEDS: NS 1,000 ML IV 1,000 ML with MAGNESIUM SULFATE 50% INJ VIAL 2 G IV SCH (17:13)
[2025-03-23] MEDS: DUONEB 0.5 MG/3 MG (3 mL) NEB ONE (17:24)
--- NOTE | 2025-03-23 19:06 | EKG ---
Test Reason : SHORTNESS OF BREATH, RESPIRATORY DISTRESS Blood Pressure : */* mmHG Vent. Rate : 70 BPM Atrial Rate : 70 BPM P-R Int : 182 ms QRS Dur : 106 ms QT Int : 446 ms P-R-T Axes : 35 -36 18 degrees QTc Int : 481 ms Normal sinus rhythm Possible Left atrial enlargement Left axis deviation Incomplete right bundle branch block Left ventricular hypertrophy ( R in aVL , Darin product ) Nonspecific ST and T wave abnormality Abnormal ECG When compared with ECG of 23-MAR-2025 10:48, Non-specific change in ST segment in Inferior leads Confirmed by Sree Cadena MD ([id number]) on 03/24/2025 7:06:42 AM Referred By: Confirmed By: Sree Cadena MD
[2025-03-23 19:39] LABS: BASOPHILS # (AUTO) 0.1 X10^3/uL (0.0-0.1); BASOPHILS % (AUTO) 0.2 % (0.2-1.0); EOSINOPHILS # (AUTO) 0.1 x10^3/uL (0.0-0.2); EOSINOPHILS % (AUTO) 0.5 % (0.9-2.9); HEMATOCRIT 39.1 % (42.0-54.0); HEMOGLOBIN 13.1 g/dL (13.5-18.0); LYMPHOCYTES # (AUTO) 0.3 X10^3/uL (1.3-2.9); LYMPHOCYTES % (AUTO) 1.1 % (21.0-51.0); MEAN CORPUSCULAR HGB CONC 33.5 g/dL (33.0-35.0); MEAN CORPUSCULAR VOLUME 92.6 fL (80.0-100.0); MEAN PLATELET VOLUME 9.2 fL (7.4-11.0); MONOCYTES # (AUTO) 0.9 x10^3/uL (0.3-0.8); MONOCYTES % (AUTO) 3.7 % (0.0-13.0); NEUTROPHILS # (AUTO) 23.1 x10^3/uL (2.2-4.8); NEUTROPHILS % (AUTO) 94.5 % (42.0-75.0); PLATELET COUNT 111 X10^3/uL (150.0-450.0); RED BLOOD COUNT 4.22 X10^6/uL (4.7-6.0); WHITE BLOOD COUNT 24.5 X10^3/uL (3.6-10.0)
[2025-03-23 19:51] LABS: ALBUMIN 2.9 g/dL (3.4-5.0); CALCIUM 8.9 mg/dL (8.5-10.1); CARBON DIOXIDE 19.5 mmol/L (21-32); COR CA(FOR HYPOALB) 9.8 mg/dL (8.5-10.1); CREATININE 2.48 mg/dL (0.70-1.30); POTASSIUM 4.7 mmol/L (3.5-5.1); TOTAL PROTEIN 6.5 g/dL (6.4-8.2)
[2025-03-23 19:58] LABS: BAND NEUTROPHILS % 2 % (0-10)
[2025-03-23 19:59] LABS: PLATELET MORPHOLOGY COMMENT NORMAL (NORMAL)
[2025-03-23] MEDS: PULMICORT NEB TX 0.5 MG NEB SCH (20:20)
[2025-03-23] MEDS: ZOCOR TAB 10 MG PO SCH (21:13)
[2025-03-23] MEDS: PROTONIX TAB 40 MG PO SCH (21:14)
[2025-03-23] MEDS: LOPRESSOR TAB 25 MG PO SCH (21:14)
[2025-03-23] MEDS: DESYREL PO SCH (21:15)
[2025-03-23] MEDS: K-DUR TAB 20 MEQ PO SCH (21:18)
[2025-03-23] MEDS: SOLU-Medrol 40 MG VIAL IVP SCH (21:18)
[2025-03-23] MEDS: NS IV SCH (21:25)
[2025-03-23] MEDS: TOBRAMYCIN SULFATE IV SCH (21:25)
[2025-03-23] MEDS ORDERED: ZOSYN VIAL 4.5 GRAMS 4.5 G in NS 100 ML IV 100 ML IV SCH (22:00)
[2025-03-23] MEDS: ZOSYN VIAL 3.375 GRAMS 3.375 G in NS 100 ML IV 100 ML IV SCH (22:08)
[2025-03-23] MEDS: NS 250 ML IV 25 ML IV PRN (22:08)
--- NOTE | 2025-03-24 00:36 | RAD ---
EXAM: CHEST, 1 VIEW HISTORY: SHORTNESS OF BREATH, RESPIRATORY DISTRESS; COMPARISON: 03/23/2025 9:56 a.m. FINDINGS: The trachea is midline. The cardiac silhouette is unremarkable. Changes of prior CABG surgery present. Bilateral airspace opacities may represent edema or infiltrates. No pleural effusion or pneumothorax.. The bony thorax is unremarkable. IMPRESSION: Stable portable chest; no significant change from previous 03/23/2025 THIS IS AN ELECTRONICALLY VERIFIED FINAL REPORT 03/24/2025 12:33 AM - Electronically signed by Ed Duarte MD
[2025-03-24] MEDS: DIPRIVAN PREMIX 1 GRAM IV 1,000 MG/100 ML VIAL IV PRN (01:42)
[2025-03-24] MEDS: DIPRIVAN PREMIX 1 GRAM IV 1,000 MG/100 ML VIAL ONE (01:42)
[2025-03-24 03:01] LABS: ABG BASE EXCESS -7.1 mmol/L (-2.0-2.0); ABG HCO3 22.6 mmol/L (22-26)
[2025-03-24 03:02] LABS: ABG ALLEN TEST POS
[2025-03-24 04:54] LABS: ABG ALLEN TEST POS; ABG BASE EXCESS -5.7 mmol/L (-2.0-2.0); ABG HCO3 21.5 mmol/L (22-26)
[2025-03-24 04:58] LABS: EOSINOPHILS # (AUTO) 0.1 x10^3/uL (0.0-0.2); MEAN CORPUSCULAR HGB CONC 33.2 g/dL (33.0-35.0); MONOCYTES # (AUTO) 0.8 x10^3/uL (0.3-0.8); PLATELET COUNT 125 X10^3/uL (150.0-450.0)
[2025-03-24 05:01] LABS: BASOPHILS # (AUTO) 0.2 X10^3/uL (0.0-0.1); BASOPHILS % (AUTO) 0.6 % (0.2-1.0); EOSINOPHILS % (AUTO) 0.3 % (0.9-2.9); HEMATOCRIT 39.3 % (42.0-54.0); LYMPHOCYTES # (AUTO) 0.3 X10^3/uL (1.3-2.9); LYMPHOCYTES % (AUTO) 1.1 % (21.0-51.0); MEAN CORPUSCULAR HEMOGLOBIN 30.8 pg (27.0-34.0); MEAN CORPUSCULAR VOLUME 92.8 fL (80.0-100.0); MEAN PLATELET VOLUME 9.9 fL (7.4-11.0); MONOCYTES % (AUTO) 2.9 % (0.0-13.0); NEUTROPHILS # (AUTO) 27.1 x10^3/uL (2.2-4.8); NEUTROPHILS % (AUTO) 95.1 % (42.0-75.0); RED BLOOD COUNT 4.23 X10^6/uL (4.7-6.0); RED CELL DISTRIBUTION WIDTH 16.2 % (11.6-16.5); WHITE BLOOD COUNT 28.5 X10^3/uL (3.6-10.0)
[2025-03-24 05:06] LABS: ALBUMIN 2.7 g/dL (3.4-5.0); CALCIUM 8.6 mg/dL (8.5-10.1); CARBON DIOXIDE 24.1 mmol/L (21-32); COR CA(FOR HYPOALB) 9.6 mg/dL (8.5-10.1); CREATININE 2.48 mg/dL (0.70-1.30); POTASSIUM 5.1 mmol/L (3.5-5.1); TOTAL PROTEIN 6.3 g/dL (6.4-8.2)
[2025-03-24 05:08] LABS: PLATELET MORPHOLOGY COMMENT NORMAL (NORMAL)
--- NOTE | 2025-03-24 05:18 | RAD ---
EXAM: CHEST, 1 VIEW HISTORY: INTUBATION, PNEUMONIA ; WI, CAD, HTN, COPD SX: CABG/VALVE COMPARISON: None. TECHNIQUE: Patient intubated with ETT in good position approximately 3.9 cm above the kellie. Lungs demonstrate bilateral extensive mixed airspace and ground-glass infiltrates throughout consistent with severe pulmonary edema versus ARDS versus multifocal pneumonia. No pneumothorax or large pleural effusion. IMPRESSION: Findings as above. THIS IS AN ELECTRONICALLY VERIFIED FINAL REPORT 03/24/2025 5:14 AM - Electronically signed by MD KESHAV Monk
--- NOTE | 2025-03-24 06:53 | DR.UPDATE ---
H&P Update Prescription drug monitoring program results: PDMP was not reviewed H&P Reviewed: Yes Any changes to H&P?: No Patient was examined?: Yes Vital Signs: Temp Pulse Resp BP Pulse Ox O2 Del Method O2 Flow Rate 03/24/25 06:41 31 H 03/24/25 06:31 30 H 03/24/25 06:16 34 H 03/24/25 06:02 35 H 03/24/25 06:00 97.9 F 72 34 H 105/52 98 Mechanical Ventilator 03/24/25 05:46 32 H 03/24/25 05:32 34 H 03/24/25 05:12 34 H 03/24/25 05:12 71 33 H 120/58 98 Mechanical Ventilator 03/24/25 05:02 30 H 03/24/25 04:33 31 H 03/24/25 04:16 33 H 03/24/25 04:03 34 H 03/24/25 04:00 98.2 F 72 32 H 106/53 97 Mechanical Ventilator 03/24/25 03:50 Mechanical Ventilator 03/24/25 03:46 32 H 03/24/25 03:12 30 H 03/24/25 03:00 77 23 126/60 92 L Mechanical Ventilator 03/24/25 02:42 27 H 03/24/25 02:12 18 03/24/25 02:00 75 14 125/59 92 L Mechanical Ventilator 03/24/25 01:45 Mechanical Ventilator 03/24/25 01:42 14 03/24/25 01:42 13 03/24/25 01:00 61 60 H 119/58 95 Bi-pap 03/24/25 00:25 50 H 03/24/25 00:00 69 50 H 115/58 98 Bi-pap 03/23/25 23:55 42 H 03/23/25 23:36 03/23/25 23:34 Bi-pap 03/23/25 23:25 43 H 03/23/25 23:00 98.4 F 69 60 H 120/61 92 L Bi-pap 03/23/25 22:00 97.9 F 71 56 H 134/57 94 L Bi-pap 03/23/25 21:41 98 Bi-pap 03/23/25 21:00 71 51 H 128/58 90 L Bi-pap 03/23/25 20:20 03/23/25 20:20 68 94 L 03/23/25 20:20 Bi-pap 03/23/25 20:00 68 44 H 116/56 92 L Bi-pap 03/23/25 19:00 Bi-pap 03/23/25 19:00 98.4 F 70 52 H 112/58 93 L Bi-pap 03/23/25 18:01 120/58 03/23/25 18:01 65 41 H 86 L 03/23/25 18:00 66 43 H 85 L 03/23/25 17:33 36 H 03/23/25 17:03 37 H 03/23/25 17:01 116/55 03/23/25 17:01 62 40 H 98 03/23/25 17:00 62 38 H 97 03/23/25 17:00 60 92 L 03/23/25 16:01 60 37 H 92 L 03/23/25 16:01 114/54 03/23/25 16:00 60 39 H 92 L 03/23/25 15:15 58 L 35 H 91 L 03/23/25 15:02 60 38 H 91 L 03/23/25 15:02 133/60 03/23/25 15:00 60 39 H 93 L 03/23/25 14:56 Bi-pap 03/23/25 14:56 03/23/25 14:45 98.2 F 61 41 H 95 03/23/25 14:32 98.2 F 62 46 H 108/55 92 L 03/23/25 14:30 Room Air 03/23/25 14:28 60 56 H 93 L 03/23/25 14:01 110/54 03/23/25 14:01 60 51 H 92 L 03/23/25 14:00 60 35 H 92 L 03/23/25 13:46 60 40 H 93 L 03/23/25 13:31 61 30 H 92 L 03/23/25 13:31 119/55 03/23/25 13:30 59 L 45 H 92 L 03/23/25 13:16 104/52 03/23/25 13:16 59 L 29 H 93 L Oxy Mask 03/23/25 13:15 59 L 51 H 93 L 03/23/25 13:00 60 25 H 93 L 03/23/25 13:00 119/58 03/23/25 13:00 119/58 03/23/25 12:46 130/56 03/23/25 12:46 59 L 28 H 94 L 03/23/25 12:45 59 L 40 H 94 L 03/23/25 12:30 59 L 30 H 94 L 03/23/25 12:30 110/57 03/23/25 12:16 59 L 29 H 93 L 03/23/25 12:16 108/58 03/23/25 12:15 58 L 32 H 94 L 03/23/25 12:00 107/56 03/23/25 12:00 59 L 37 H 93 L 03/23/25 11:48 60 36 H 94 L 03/23/25 11:48 108/54 03/23/25 11:45 61 36 H 94 L 03/23/25 11:45 98.1 F 03/23/25 11:31 61 35 H 03/23/25 11:31 112/60 03/23/25 11:30 61 33 H 03/23/25 11:15 61 32 H 89 L 03/23/25 11:15 117/56 03/23/25 11:00 63 29 H 90 L 03/23/25 11:00 122/58 03/23/25 10:46 68 88 L 03/23/25 10:46 63 11 L 89 L Oxy Mask 10 03/23/25 10:46 134/59 03/23/25 10:45 63 14 90 L Oxy Mask 10 03/23/25 10:30 64 24 86 L 03/23/25 10:30 148/66 03/23/25 10:28 101.2 F H 66 18 143/67 78 L Nasal Cannula 03/23/25 10:24 66 30 H 79 L 03/23/25 10:24 143/67 03/23/25 10:23 66 76 L FiO2 03/24/25 06:41 70 03/24/25 06:31 70 03/24/25 06:16 70 03/24/25 06:02 70 03/24/25 06:00 03/24/25 05:46 70 03/24/25 05:32 70 03/24/25 05:12 70 03/24/25 05:12 03/24/25 05:02 70 03/24/25 04:33 70 03/24/25 04:16 72 03/24/25 04:03 70 03/24/25 04:00 03/24/25 03:50 70 03/24/25 03:46 70 03/24/25 03:12 70 03/24/25 03:00 03/24/25 02:42 60 03/24/25 02:12 60 03/24/25 02:00 03/24/25 01:45 60 03/24/25 01:42 60 03/24/25 01:42 55 03/24/25 01:00 03/24/25 00:25 03/24/25 00:00 03/23/25 23:55 03/23/25 23:36 55 03/23/25 23:34 55 03/23/25 23:25 03/23/25 23:00 03/23/25 22:00 03/23/25 21:41 03/23/25 21:00 03/23/25 20:20 45 03/23/25 20:20 03/23/25 20:20 45 03/23/25 20:00 03/23/25 19:00 03/23/25 19:00 03/23/25 18:01 03/23/25 18:01 03/23/25 18:00 03/23/25 17:33 03/23/25 17:03 03/23/25 17:01 03/23/25 17:01 03/23/25 17:00 03/23/25 17:00 03/23/25 16:01 03/23/25 16:01 03/23/25 16:00 03/23/25 15:15 03/23/25 15:02 03/23/25 15:02 03/23/25 15:00 03/23/25 14:56 30 03/23/25 14:56 30 03/23/25 14:45 03/23/25 14:32 03/23/25 14:30 03/23/25 14:28 03/23/25 14:01 03/23/25 14:01 03/23/25 14:00 03/23/25 13:46 03/23/25 13:31 03/23/25 13:31 03/23/25 13:30 03/23/25 13:16 03/23/25 13:16 03/23/25 13:15 03/23/25 13:00 03/23/25 13:00 03/23/25 13:00 03/23/25 12:46 03/23/25 12:46 03/23/25 12:45 03/23/25 12:30 03/23/25 12:30 03/23/25 12:16 03/23/25 12:16 03/23/25 12:15 03/23/25 12:00 03/23/25 12:00 03/23/25 11:48 03/23/25 11:48 03/23/25 11:45 03/23/25 11:45 03/23/25 11:31 03/23/25 11:31 03/23/25 11:30 03/23/25 11:15 03/23/25 11:15 03/23/25 11:00 03/23/25 11:00 03/23/25 10:46 03/23/25 10:46 03/23/25 10:46 03/23/25 10:45 03/23/25 10:30 03/23/25 10:30 03/23/25 10:28 03/23/25 10:24 03/23/25 10:24 03/23/25 10:23 Procedures (ALL) - Abscess I/D side ( if applicable ): Right - Intubation Time out performed: Yes Sedative: ketamine (25, ), other (propofol 100mg) paralytic: succinylchline (100), other (rocuronium 50mg after return of twitches) Laryngoscope: fiber optic video scope (glidescope 3) ET tube size: 8 Tube secured depth: 22 Tube secured location: lips Tube placement confirmation: visualized tube passing through cords, equal breath sounds bilaterally, no breath sounds over epigastrium, comfirmation by capnometer Patient tolerated procedure: Yes Intubation complications: none (performed by Althea trveiño crna)
[2025-03-24 07:35] VITALS: TEMP 97.8
[2025-03-24] MEDS: PULMICORT NEB TX 0.5 MG NEB ONE (07:42)
[2025-03-24] MEDS: QUELICIN (OR ANECTINE) ONE (07:43)
[2025-03-24] MEDS: DIPRIVAN VIAL 20 ML ONE (07:43)
[2025-03-24] MEDS: ZEMURON 100 MG VIAL ONE (07:43)
[2025-03-24] MEDS: DIPRIVAN PREMIX 500 MG IV 500 MG/50 ML VIAL IV ONE (07:57)
[2025-03-24] MEDS ORDERED: KETAMINE HCL ONE (08:00)
--- NOTE | 2025-03-24 08:07 | DR.H&P ---
H&P History & Physical for Day of: H&P Date: 03/23/25 Chief Complaint Chief Complaint: RESPIRATORY DISTRESS History of Present Illness History of Present Illness: PT IS 65 WM, ER ADMISSION AFTER BEING SENT FROM [facility] WITH NEW ONSET SOB/RESPIRATORY DISTRESS. PT HAS PMH OF COPD, HTN, CHF, CRF, GOUT, OA AND MDD. PT NURSE REPORTS HE HAD A FALL OVER THE WEEKEND BUT NO REPORT INJURYS. PT HAD ONSET OF RESPIRATORY DISTRESS, ON SUPPLEMENTAL O2 PRIOR TO ARRIVAL. OUTPT CXR AND ROOM AIR ABG ORDERED, RESP DISTRESS REQUIRED ER EVALUATION. PT ADMITTED TO ICU WITH SEPSIS, PNEUMONIA AND RESPIRATORY FAILURE. Past Medical History Past Medical History: Anxiety, Arthritis, COPD, Coronary Artery Disease, Depression, Hypertension and [place] Past Surgical History Surgical History: CABG/Valve Surgery Family History Family Medical History: Hypertension Social History Does patient currently use any type of tobacco product: No Have you used tobacco products in the last 12 months: No Type of Tobacco Use: None Does any household member use tobacco: No Alcohol Use: None Drug Use: None Medications Home Medications: Home Medications Medication Instructions Recorded Confirmed Type budesonide-formoterol HFA 160 2 puff inhalation BID 03/23/25 History mcg-4.5 mcg/actuation aerosol inhaler (Symbicort) simvastatin 10 mg tablet 10 mg PO HS 06/25/20 5 History hydrocodone 5 mg-acetaminophen 325 1 tab PO Q12H PRN 0 03/29/22 03/23/25 History mg tablet aspirin 81 mg tablet,delayed 81 mg PO QDAY 12/07/22 History release cholecalciferol (vitamin D3) 1,250 1,250 mcg PO .EVERY Sunday06/30/24 03/23/25 History mcg (50,000 unit) tablet furosemide 40 mg tablet 40 mg PO BID 06/30/24 History metoprolol tartrate 25 mg tablet 25 mg PO BID 06/30/24 03/23/25 History nitroglycerin 0.4 mg sublingual 0.4 mg sublingual .ASN EEDED PRN 06/30/24 03/23/25 History tablet Chest Pain pantoprazole 40 mg tablet,delayed 40 mg PO BID 4 03/23/25 History release acetaminophen 325 mg tablet 650 mg PO Q4H PRN 03/23/25 03/23/25 History (Tylenol) amlodipine 10 mg tablet 10 mg PO QDAY 03/23/2503/23 History bupropion HCl 150 mg 24 hr tablet, 150 mg PO QDAY 03/0803/23/25 History extended release fluoxetine 40 mg capsule 40 mg PO QDAY 03/23/2503/23 History hydralazine 10 mg tablet 10 mg PO TID 03/23/25 History potassium chloride 10 mEq 20 meq PO BID 03/23/2503/23 History capsule,extended release trazodone 50 mg tablet 25 mg PO HS 03/23/25 5 History Allergies Allergies Allergy/AdvReac Type Severity Reaction Status Date / Time codeine Allergy Verified 03/23/25 10:23 Labs 03/24/25 04:36 03/24/25 04:36 Labs: 03/23/25 10:28 Blood Blood Culture Gram Stain - Final 03/24/25 01:51 Sputum - Expectorated Sputum - Final 03/23/25 10:40 Blood Blood Culture Gram Stain - Final Laboratory WBC 28.5 X10^3/uL (3.6-10.0) H 03/24/25 04:36 RBC 4.23 X10^6/uL (4.7-6.0) L 03/24/25 04:36 Hgb 13.0 g/dL (13.5-18.0) L 03/24/25 04:36 Hct 39.3 % (42.0-54.0) L 03/24/25 04:36 MCV 92.8 fL (80.0-100.0) 03/24/25 04:36 MCH 30.8 pg (27.0-34.0) 03/24/25 04:36 MCHC 33.2 g/dL (33.0-35.0) 03/24/25 04:36 RDW 16.2 % (11.6-16.5) 03/24/25 04:36 Plt Count 125 X10^3/uL (150.0-450.0) L 03/24/25 04:36 Plt Count Comment Decreased (ADEQUATE) 03/24/25 04:36 MPV 9.9 fL (7.4-11.0) 03/24/25 04:36 Neut % (Auto) 95.1 % (42.0-75.0) H 03/24/25 04:36 Lymph % (Auto) 1.1 % (21.0-51.0) L 03/24/25 04:36 Stephens % (Auto) 2.9 % (0.0-13.0) 03/24/25 04:36 Eos % (Auto) 0.3 % (0.9-2.9) L 03/24/25 04:36 Baso % (Auto) 0.6 % (0.2-1.0) 03/24/25 04:36 Neut # (Auto) 27.1 x10^3/uL (2.2-4.8) H 03/24/25 04:36 Lymph # (Auto) 0.3 X10^3/uL (1.3-2.9) L 03/24/25 04:36 Stephens # (Auto) 0.8 x10^3/uL (0.3-0.8) 03/24/25 04:36 Eos # (Auto) 0.1 x10^3/uL (0.0-0.2) 03/24/25 04:36 Baso # (Auto) 0.2 X10^3/uL (0.0-0.1) H 03/24/25 04:36 Absolute Nucleated RBC 0.0 /100WBC 03/24/25 04:36 Total Counted 100 03/24/25 04:36 Neutrophils % (Manual) 98 % (39-76) H 03/24/25 04:36 Band Neutrophils % 2 % (0-10) 03/23/25 19:30 Lymphocytes % (Manual) 1 % (13-43) L 03/24/25 04:36 Monocytes % (Manual) 1 % (4-9) L 03/24/25 04:36 Metamyelocytes % 2 03/23/25 10:28 Plt Morphology Comment Normal (NORMAL) 03/24/25 04:36 RBC Morphology Normal (NORMAL) 03/24/25 04:36 PT 15.8 SECONDS (11.8-14.3) 03/23/25 10:28 INR Target Range - 03/23/25 10:28 INR 1.25 (0.8-1.3) 03/23/25 10:28 APTT 31.4 SECONDS (22.9-36.5) 03/23/25 10:28 PTT Comment - 03/23/25 10:28 Sample Site Rr 03/24/25 04:49 ABG pH 7.260 (7.35-7.45) L 03/24/25 04:49 ABG pCO2 48.0 mmHg (35.0-45.0) H 03/24/25 04:49 ABG pO2 59.0 mmHg (80.0-100.0) L 03/24/25 04:49 ABG HCO3 21.5 mmol/L (22-26) L 03/24/25 04:49 ABG O2 Saturation 86.0 % (90-100) L 03/24/25 04:49 ABG Base Excess -5.7 mmol/L (-2.0-2.0) L 03/24/25 04:49 Xavi Test Pos 03/24/25 04:49 A-a Gradient 380.0 mmHg 03/24/25 04:49 FiO2 70.0 03/24/25 04:49 Blood Gas Comments Nancy well ae 03/24/25 04:49 Sodium 139 mmol/L (136-145) 03/24/25 04:36 Corrected Sodium 140 mmol/L (136-145) 03/24/25 04:36 Potassium 5.1 mmol/L (3.5-5.1) 03/24/25 04:36 Chloride 105 mmol/L (98-107) 03/24/25 04:36 Carbon Dioxide 24.1 mmol/L (21-32) 03/24/25 04:36 BUN 46 mg/dL (7-18) H 03/24/25 04:36 Creatinine 2.48 mg/dL (0.70-1.30) H 03/24/25 04:36 Est GFR (MDRD) Af Amer 34 (>60) L 03/24/25 04:36 Est GFR (MDRD) Non-Af 28 (>60) L 03/24/25 04:36 Glucose 161 mg/dL (65-99) H 03/24/25 04:36 Lactic Acid 2.8 mmol/L (0.4-2.0) H 03/24/25 06:07 Calcium 8.6 mg/dL (8.5-10.1) 03/24/25 04:36 Corrected Calcium 9.6 mg/dL (8.5-10.1) 03/24/25 04:36 Magnesium 1.5 mg/dL (2.0-2.9) L 03/23/25 10:28 Total Bilirubin 1.30 mg/dL (0.2-1.0) H 03/24/25 04:36 AST 71 Units/L (15-37) H 03/24/25 04:36 ALT 31 Units/L (12-78) 03/24/25 04:36 Alkaline Phosphatase 145 Units/L (46-116) H 03/24/25 04:36 Creatine Kinase 227 Units/L (39-308) 03/23/25 10:28 Troponin I High Sens 90.7 ng/L (4.0-60.0) H* 03/23/25 19:30 B-Natriuretic Peptide 888 pg/mL (0-79) H 03/23/25 10:28 Total Protein 6.3 g/dL (6.4-8.2) L 03/24/25 04:36 Albumin 2.7 g/dL (3.4-5.0) L 03/24/25 04:36 Globulin 3.6 g/dL (2.5-4.5) 03/24/25 04:36 Albumin/Globulin Ratio 0.8 Ratio (1.1-2.1) L 03/24/25 04:36 Specimen Type Catherized urine 03/23/25 11:20 Urine Color Dark yellow (YELLOW) 03/23/25 11:20 Urine Appearance Slightly hazy (CLEAR) 03/23/25 11:20 Urine pH 6.0 (5.0 - 8.0) 03/23/25 11:20 Ur Specific [place] 1.015 (1.000-1.030) 03/23/25 11:20 Urine Protein 3+ (NEGATIVE) 03/23/25 11:20 Urine Glucose (UA) Negative (NEGATIVE) 03/23/25 11:20 Urine Ketones Negative (NEGATIVE) 03/23/25 11:20 Urine Blood 5+ (NEGATIVE) 03/23/25 11:20 Urine Nitrite Negative (NEGATIVE) 03/23/25 11:20 Urine Bilirubin 1+ (NEGATIVE) 03/23/25 11:20 Urine Urobilinogen 2+ (NORMAL) 03/23/25 11:20 Ur Leukocyte Esterase 3+ (NEGATIVE) 03/23/25 11:20 Urine RBC 10-20 /HPF (0-3) A 03/23/25 11:20 Urine WBC 10-20 /HPF (0-5) A 03/23/25 11:20 Ur Squamous Epith Cells Rare /HPF (NEGATIVE) 03/23/25 11:20 Amorphous Sediment 1+ /HPF (NEGATIVE) 03/23/25 11:20 Urine Bacteria 3+ /HPF (NEGATIVE) 03/23/25 11:20 Ur Culture Indicated? Yes/culture set up 03/23/25 11:20 SARS-CoV-2 (PCR) Negative (NEGATIVE) 03/23/25 10:28 Influenza Type A (PCR) Negative (NEGATIVE) 03/23/25 10:28 Influenza Type B (PCR) Negative (NEGATIVE) 03/23/25 10:28 RSV (PCR) Negative (NEGATIVE) 03/23/25 10:28 Resp Viral Panel (PCR) See scanned report 03/23/25 14:34 S. pyogenes (TEM-PCR) Not detected (NOT DETECT) 03/23/25 10:28 Review of Systems Constitutional: Fever and Weakness Eyes: No Symptoms Reported ENT: No Symptoms Reported Respiratory: Shortness of Breath Cardiovascular: Edema Gastrointestinal: No Symptoms Reported Genitourinary: No Symptoms Reported Musculoskeletal: No Symptoms Reported Skin: No Symptoms Reported Neurological: Weakness and Other (LETHARGIC) Physical Exam Vital Signs: Vital Signs Temperature 97.8 F Temperature 97.9 F Temperature 98.2 F Pulse Rate 67 Pulse Rate 68 Pulse Rate 67 Pulse Rate 68 Pulse Rate 68 Pulse Rate 67 Pulse Rate 68 Pulse Rate 68 Pulse Rate 68 Pulse Rate 68 Pulse Rate 69 Pulse Rate 72 Pulse Rate 71 Pulse Rate 72 Pulse Rate 77 Pulse Rate 75 Pulse Rate 61 Pulse Rate 69 Respiratory Rate 12 Respiratory Rate 14 Respiratory Rate 19 Respiratory Rate 22 Respiratory Rate 19 Respiratory Rate 18 Respiratory Rate 21 Respiratory Rate 16 Respiratory Rate 27 Respiratory Rate 28 Respiratory Rate 29 Respiratory Rate 29 Respiratory Rate 31 Respiratory Rate 30 Respiratory Rate 34 Respiratory Rate 35 Respiratory Rate 34 Respiratory Rate 32 Respiratory Rate 34 Respiratory Rate 34 Respiratory Rate 33 Respiratory Rate 30 Respiratory Rate 31 Respiratory Rate 33 Respiratory Rate 34 Respiratory Rate 32 Respiratory Rate 32 Respiratory Rate 30 Respiratory Rate 23 Respiratory Rate 27 Respiratory Rate 18 Respiratory Rate 14 Respiratory Rate 14 Respiratory Rate 13 Respiratory Rate 60 Respiratory Rate 50 Respiratory Rate 50 Blood Pressure 85/47 Blood Pressure 84/49 Blood Pressure 85/46 Blood Pressure 85/50 Blood Pressure 84/45 Blood Pressure 85/49 Blood Pressure 91/49 Blood Pressure 87/52 Blood Pressure 84/49 Blood Pressure 89/53 Blood Pressure 105/52 Blood Pressure 120/58 Blood Pressure 106/53 Blood Pressure 126/60 Blood Pressure 125/59 Blood Pressure 119/58 Blood Pressure 115/58 O2 Sat by Pulse Oximetry 100 O2 Sat by Pulse Oximetry 100 O2 Sat by Pulse Oximetry 100 O2 Sat by Pulse Oximetry 100 O2 Sat by Pulse Oximetry 100 O2 Sat by Pulse Oximetry 100 O2 Sat by Pulse Oximetry 100 O2 Sat by Pulse Oximetry 100 O2 Sat by Pulse Oximetry 100 O2 Sat by Pulse Oximetry 100 O2 Sat by Pulse Oximetry 100 O2 Sat by Pulse Oximetry 98 O2 Sat by Pulse Oximetry 98 O2 Sat by Pulse Oximetry 97 O2 Sat by Pulse Oximetry 92 O2 Sat by Pulse Oximetry 92 O2 Sat by Pulse Oximetry 95 O2 Sat by Pulse Oximetry 98 Oriented: Normal Eyes: Normal Ear: Normal Nose: Normal Throat: Dry Respiratory: Diminished Throughout Cardiovascular: Tachycardia Auscultation: Bowel Sounds: Normal Palpation: Normal Tenderness: Normal Skin: Decreased Turgur Musculoskeletal: Motor Deficit Psychiatric: Depression and Agitation Mood Description: Anxious Speech Pattern: Unable to speak Assessment/Plan (1) Sepsis: Status: Acute Plan: ADMIT, ICU BLOOD SPUTUM AND URINE CULTURE ON ADMISSION ABG, RESPIRATORY THERAPY, SUPPLEMENTAL O2 STRICT I&OS, IV ATBX, VERIFY HOME MEDICATION BIPAP THERAPY, WILL PLACE ON MECHANICAL VENTILATION PRN IV HYDRATION, CARDIAC MONITORING AND BP CONTROL (2) Pneumonia: Status: Acute (3) CHF (congestive heart failure): Status: Acute (4) Chronic UTI (urinary tract infection): Status: Acute (5) Cardiac enzymes elevated: Status: Acute (6) Hypertension: Status: Acute (7) CAD (coronary artery disease): Status: Acute (8) Chronic renal failure: Status: Acute (9) Acute respiratory distress: Status: Acute
[2025-03-24] MEDS: VANCOMYCIN IV *PREMIX 1.5 G/300 ML BAG 1.5 G/300 ML PIGGYBACK IV SCH (08:19)
--- NOTE | 2025-03-24 08:52 | RAD ---
EXAM: Portable chest HISTORY: Shortness of breath COMPARISON: 03/24/2025 1:49 a.m. FINDINGS: There is an endotracheal tube in good position above the kellie. Patient is status post median sternotomy and CABG. There is a loop recorder device overlying the left ventricle. Heart size is normal. Bilateral perihilar ground-glass and alveolar infiltrates identified and unchanged from the prior examination. Differential diagnostic possibilities include congestive heart failure, bilateral pneumonia, and ARDS. Findings are unchanged when compared with the prior examination. IMPRESSION: Endotracheal tube in good position No change diffuse bilateral perihilar ground-glass and alveolar infiltrates. Some differential diagnostic possibilities given above THIS IS AN ELECTRONICALLY VERIFIED FINAL REPORT 03/24/2025 8:49 AM - Electronically signed by Doc Pulliam MD
[2025-03-24] MEDS ORDERED: PROzac PO SCH (09:00)
[2025-03-24] MEDS ORDERED: NORVASC TAB 10 MG PO SCH (09:00)
[2025-03-24] MEDS ORDERED: PHARMACY CONSULT LTC MEDICATIONS XX SCH (09:00)
[2025-03-24] MEDS ORDERED: ASPIRIN EC 81 MG PO SCH (09:00)
[2025-03-24] MEDS ORDERED: WELLBUTRIN XL 150 MG (DAILY) PO SCH (09:00)
[2025-03-24] MEDS ORDERED: NS 250 ML IV 25 ML IV PRN (09:38)
[2025-03-24] MEDS: PROTONIX INJ 40 MG VIAL IVP SCH (09:40)
[2025-03-24] MEDS: LOVENOX INJ 30 MG SYR SC SCH (09:40)
[2025-03-24 11:13] VITALS: BP 85/49; PULSE 66; RESP 23; O2SAT 98
[2025-03-24] MEDS ORDERED: NS 1,000 ML IV 1,000 ML ONE (11:35)
[2025-03-24] MEDS ORDERED: NS 1,000 ML IV 1,000 ML with MAGNESIUM SULFATE 50% INJ VIAL 1 G IV SCH (16:00)
[2025-03-24] MEDS ORDERED: PHARMACY COMMENT IV SCH (20:30)
[2025-03-26] MEDS ORDERED: PHARMACY COMMENT IV NR (08:00)
== END 2025-03-24 12:10 | disposition short-term general hospital (02) | DRG 871 ==
LOC: ER 10:22 → ICU 13:56
PROVIDERS: ADMIT Internal Medicine; ATTEND Internal Medicine
DX: J18.9 Pneumonia, unspecified organism; N18.9 Chronic kidney disease, unspecified; I50.9 Heart failure, unspecified; M10.9 Gout, unspecified; R79.89 Other specified abnormal findings of blood chemistry; J44.9 Chronic obstructive pulmonary disease, unspecified; E83.42 Hypomagnesemia; A41.51 Sepsis due to Escherichia coli [E. coli]; Z91.81 History of falling; R26.2 Difficulty in walking, not elsewhere classified; R06.03 Acute respiratory distress; N39.0 Urinary tract infection, site not specified; R06.02 Shortness of breath; F32.9 Major depressive disorder, single episode, unspecified; M19.90 Unspecified osteoarthritis, unspecified site; I10 Essential (primary) hypertension